=== PATIENT | male | born 1950 | race Caucasian/White ===

== ENCOUNTER 2017-02-28 13:25 | Inpatient (IN) | payer OTHER, BC ==
[2017-02-28] MEDS ORDERED: ASPIRIN 325 MG TABLET PO ONE (14:22)
[2017-02-28] MEDS ORDERED: ASPIRIN 325 MG TABLET ONE (14:42)
[2017-02-28] MEDS ORDERED: NITROGLYCERIN SUBLINGUAL 1/150 0.4 MG TAB SL ONE (15:01)
[2017-02-28] MEDS ORDERED: NITROGLYCERIN SUBLINGUAL 1/150 0.4 MG TAB ONE ×2 (15:02→15:04)
[2017-02-28 15:07] LABS: BASOPHIL 0.6 % (0-2.0); EOSINOPHIL 0.3 % (0-4.5); MCH 29.9 pg (25.7-33.7); MCHC 32.7 g/dl (32.0-35.9); MEAN CELL VOLUME 91.5 fl (80-96); MEAN PLT VOLUME 8.3 fl (7.5-11.1); NEUTROPHILS 86.3 % (42.8-82.8); PLATELET COUNT 249 K/MM3 (134-434); RDW 13.1 % (11.9-15.9); WHITE BLOOD COUNT 11.3 K/mm3 (4.0-10.0)
--- NOTE | 2017-02-28 15:09 | PDOC ---
History of Present Illness - General Stated Complaint: CHEST PAIN Time Seen by Provider: 02/28/17 13:34 History Source: Patient - History of Present Illness Presenting Symptoms: Chest Pain, Short of Breath Timing/Duration: reports: constant Severity/Quality: reports: severe Location: reports: substernal Chest Pain Radiation: reports: back Past History - Past Medical History Allergies/Adverse Reactions: Allergies Allergy/AdvReac Type Severity Reaction Status Date / Time No Known Allergies Allergy Verified 11/20/14 16:27 Home Medications: Ambulatory Orders Amlodipine Besylate 5 mg PO DAILY 02/28/17 Levothyroxine [Synthroid -] 50 mcg PO DAILY 02/28/17 Losartan Potassium 100 mg PO DAILY 02/28/17 Metformin HCl 500 mg PO DAILY 02/28/17 Anemia: No Asthma: No Cancer: No Cardiac Disorders: No CVA: No COPD: No CHF: No Dementia: No Diabetes: Yes (diet and exercise control) GI Disorders: No Disorders: No HTN: Yes Hypercholesterolemia: Yes Liver Disease: No Seizures: No Thyroid Disease: Yes - Surgical History Abdominal Surgery: No Appendectomy: No Cardiac Surgery: No Cholecystectomy: No Gastric Stapling: No GI Surgery: No Lung Surgery: No Neurologic Surgery: No - Immunization History Td Vaccination: Yes Immunization Up to Date: Yes - Psycho/Social/Smoking Cessation Hx Anxiety: No Suicidal Ideation: Yes Smoking Status: No Smoking History: Unknown if ever smoked Years of Tobacco Use: 0 Have you smoked in the past 12 months: Yes Number of Cigarettes Smoked Daily: 1 Cigars Per Day: 0 Information on smoking cessation initiated: Yes 'Breaking Loose' booklet given: 02/28/17 Hx Alcohol Use: No Drug/Substance Use Hx: No Substance Use Type: Alcohol Hx Substance Use Treatment: No Cardiac Specific PMH - Complaint Specific PMHX Pacemaker: No Review of Systems - Review of Systems Constitutional: No: Chills, Fever Respiratory: Yes: Shortness of Breath Cardiac (ROS): Yes: Chest Pain, Palpitations. No: Lightheadedness, Syncope ABD/GI: No: Nausea, Vomiting *Physical Exam - Vital Signs Last Vital Signs Temp Pulse Resp BP Pulse Ox 98.6 F 86 24 160/108 100 02/28/17 13:40 02/28/17 17:22 02/28/17 13:40 02/28/17 17:22 02/28/17 13:40 - Physical Exam General Appearance: Yes: Appropriately Dressed. No: Apparent Distress HEENT: positive: Normal Voice Neck: positive: Supple Respiratory/Chest: positive: Lungs Clear, Normal Breath Sounds. negative: Respiratory Distress Cardiovascular: positive: Regular Rate, S1, S2 Gastrointestinal/Abdominal: positive: Soft. negative: Tender Extremity: positive: Normal Inspection Integumentary: positive: Dry, Warm Neurologic: positive: Fully Oriented, Alert, Normal Mood/Affect ED Treatment Course - LABORATORY CBC & Chemistry Diagram: 02/28/17 15:00 02/28/17 15:00 - ADDITIONAL ORDERS Additional order review: Laboratory Results 02/28/17 02/28/17 15:00 15:00 Sodium 135 L Potassium 4.7 Chloride 97 L Carbon Dioxide 29 Anion Gap 9 BUN 14 D Creatinine 1.0 Creat Clearance w eGFR > 60 Random Glucose 207 H D Calcium 9.6 Total Bilirubin 0.9 D AST 31 D ALT 49 D Alkaline Phosphatase 102 Creatine Kinase 119 Troponin I 0.10 H D B-Natriuretic Peptide 25.30 Total Protein 7.6 Albumin 4.4 02/28/17 15:00 RBC 5.27 MCV 91.5 MCHC 32.7 RDW 13.1 MPV 8.3 Neutrophils % 86.3 H Lymphocytes % 8.2 D Monocytes % 4.6 Eosinophils % 0.3 D Basophils % 0.6 - RADIOLOGY Radiology Studies Ordered: Category Date Time Status ABDOMEN/PELVIS CTA W/WO CONTR [CT] Stat CT Scan 02/28/17 16:45 Completed CHEST CTA [CT] Stat CT Scan 02/28/17 15:07 Completed CHEST X-RAY PORTABLE* [RAD] Stat Radiology 02/28/17 14:21 Completed - Medications Given in the ED: ED Medications Discontinued Medications Generic Name Dose Route Start Last Admin Trade Name Freq PRN Reason Stop Dose Admin Aspirin 325 mg 02/28/17 14:22 02/28/17 14:41 Asa - PO 02/28/17 14:23 325 mg ONCE ONE Administration Nitroglycerin 0.4 mg 02/28/17 15:01 02/28/17 15:05 Nitrostat - SL 02/28/17 15:02 0.4 mg ONCE ONE Administration Nitroglycerin 1 inch 02/28/17 15:31 02/28/17 17:18 Nitro-Bid 2% Paste - TD 02/28/17 15:32 1 inch ONCE ONE Administration Nitroglycerin 0.3 mg 02/28/17 17:08 02/28/17 17:18 Nitrostat - SL 02/28/17 17:19 0.3 mg Q5M PRN Administration FOR CHEST PAIN Nitroglycerin 0.5 inch 02/28/17 17:15 02/28/17 17:18 Nitro-Bid 2% Paste - TD 02/28/17 17:16 0.5 inch ONCE ONE Administration Medical Decision Making - Medical Decision Making 02/28/17 15:08 67 yo M, h/o HTN, DM, hypothyroid, p/w sudden onset chest pressure radiating to back a/w sob that started suddenly while walking to [place] ~2 hrs ago. States sxs have improved but still present. States he returned home after sxs started and checked his BP which was 170s/100s as per pt. Reports compliance w/ his meds. Currently on 2L NC in ED and states the oxygen makes him feel better. Denies h/o similar sxs. Last stress was >20 years ago per pt. No obvious RF for DVT/PE See exam CP w/ sob in setting of significantly elevated BP R/o dissection vs ACS, less likely PE -asa -nitro -ekg -labs -CTA -anticipate admission 02/28/17 15:17 02/28/17 15:35 02/28/17 15:37 EKG w/ NSR. Labs pending. BP management in progress. Pt currently in CT 02/28/17 17:12 Pt returned from CTA c/o chest pain. BP currently 185/103. Nitro/nitropaste in progress w/ NSR on rpt ekg. Initial trop 0.1. CTA read pending. Dr Esteban informed and req Dr Dumont of cards be consulted. Pt currently admitted 02/28/17 17:20 02/28/17 17:43 CTA read as negative. Dr Heller at bedside 02/28/17 17:53 BP now 160/100. Pt appears comfortable and reports feeling better at this time. Pending cards recommendation *DC/Admit/Observation/Transfer Diagnosis at time of Disposition: Hypertensive crisis Chest pain Qualifiers: Chest pain type: unspecified Qualified Code(s): R07.9 - Chest pain, unspecified - Discharge Dispostion Condition at time of disposition: Fair Admit: Yes Decision to Admit order Date/Time: Decision to Admit Order Category Date Time Status Decision to Admit to Hospital Routine Admission 02/28/17 17:14 Active - Referrals Referrals: Edu Esteban MD [Primary Care Provider] -
--- NOTE | 2017-02-28 15:23 | PDOC ---
*Physical Exam - Vital Signs Last Vital Signs Temp Pulse Resp BP Pulse Ox 98.6 F 87 24 154/89 100 02/28/17 13:40 02/28/17 15:16 02/28/17 13:40 02/28/17 15:16 02/28/17 13:40 <Marilu Dyer - Last Filed: 02/28/17 15:23> - Vital Signs Last Vital Signs Temp Pulse Resp BP Pulse Ox 98.6 F 86 24 160/108 100 02/28/17 13:40 02/28/17 17:22 02/28/17 13:40 02/28/17 17:22 02/28/17 13:40 <Shani Ortiz - Last Filed: 02/28/17 17:26> Heart Score/ECG Review #2 General ECG Interpretation: Sinus Rhythm, Normal Rate, Normal Intervals, No acute ischemic changes (no acute changes, few PVC;s) <Marilu Dyer - Last Filed: 02/28/17 15:23> ED Treatment Course - LABORATORY CBC & Chemistry Diagram: 02/28/17 15:00 02/28/17 15:00 - ADDITIONAL ORDERS Additional order review: 02/28/17 15:00 RBC 5.27 MCV 91.5 MCHC 32.7 RDW 13.1 MPV 8.3 Neutrophils % 86.3 H Lymphocytes % 8.2 D Monocytes % 4.6 Eosinophils % 0.3 D Basophils % 0.6 - Medications Given in the ED: ED Medications Discontinued Medications Generic Name Dose Route Start Last Admin Trade Name Judeq PRN Reason Stop Dose Admin Aspirin 325 mg 02/28/17 14:22 02/28/17 14:41 Asa - PO 02/28/17 14:23 325 mg ONCE ONE Administration Nitroglycerin 0.4 mg 02/28/17 15:01 02/28/17 15:05 Nitrostat - SL 02/28/17 15:02 0.4 mg ONCE ONE Administration <Marilu Dyer - Last Filed: 02/28/17 15:23> - LABORATORY CBC & Chemistry Diagram: 02/28/17 15:00 02/28/17 15:00 - ADDITIONAL ORDERS Additional order review: Laboratory Results 02/28/17 02/28/17 15:00 15:00 Sodium 135 L Potassium 4.7 Chloride 97 L Carbon Dioxide 29 Anion Gap 9 BUN 14 D Creatinine 1.0 Creat Clearance w eGFR > 60 Random Glucose 207 H D Calcium 9.6 Total Bilirubin 0.9 D AST 31 D ALT 49 D Alkaline Phosphatase 102 Creatine Kinase 119 Troponin I 0.10 H D B-Natriuretic Peptide 25.30 Total Protein 7.6 Albumin 4.4 02/28/17 15:00 RBC 5.27 MCV 91.5 MCHC 32.7 RDW 13.1 MPV 8.3 Neutrophils % 86.3 H Lymphocytes % 8.2 D Monocytes % 4.6 Eosinophils % 0.3 D Basophils % 0.6 - Medications Given in the ED: ED Medications Discontinued Medications Generic Name Dose Route Start Last Admin Trade Name Freq PRN Reason Stop Dose Admin Aspirin 325 mg 02/28/17 14:22 02/28/17 14:41 Asa - PO 02/28/17 14:23 325 mg ONCE ONE Administration Nitroglycerin 0.4 mg 02/28/17 15:01 02/28/17 15:05 Nitrostat - SL 02/28/17 15:02 0.4 mg ONCE ONE Administration Nitroglycerin 1 inch 02/28/17 15:31 02/28/17 17:18 Nitro-Bid 2% Paste - TD 02/28/17 15:32 1 inch ONCE ONE Administration Nitroglycerin 0.3 mg 02/28/17 17:08 02/28/17 17:18 Nitrostat - SL 02/28/17 17:19 0.3 mg Q5M PRN Administration FOR CHEST PAIN Nitroglycerin 0.5 inch 02/28/17 17:15 02/28/17 17:18 Nitro-Bid 2% Paste - TD 02/28/17 17:16 0.5 inch ONCE ONE Administration <Shani Ortiz - Last Filed: 02/28/17 17:26> Medical Decision Making - Medical Decision Making 02/28/17 15:20 67 yo male h/o HTN, HLD, DM here wtih sudden onset chest pain radiating to his back .started this am while driving to [place], got out of car suddenly had pain. no n/v no fever or chills. no cough. no new numbness or tingling. no edema. no h/o prior ME. took bp medication last pm. no h/o similar pain. pressure like pain, substernal, radiating to back. on exam awake, alert NAD. lung CTAB no wheeze no crackles. heart RRR no mr/g/. abd soft NT no palp massess. pulses symmetric, ext wwp. no edema. differntial: unstable angina, acs, dissection, mi, infection. plan cxr labs ekg aspirin given . pt had recurrent pain, given sublingual nitroglycerin . pain improved. plan ct angio. <Marilu Dyer - Last Filed: 02/28/17 15:23> - Medical Decision Making 02/28/17 17:25 Dr. Dumont was paged and notified via phone service. <Shani Ortiz - Last Filed: 02/28/17 17:26> *DC/Admit/Observation/Transfer <Marilu Dyer - Last Filed: 02/28/17 15:23> <Shani Ortiz - Last Filed: 02/28/17 17:26> Diagnosis at time of Disposition: Chest pain, Hypertensive crisis - Discharge Dispostion Condition at time of disposition: Fair - Referrals Referrals: Edu Esteban MD [Primary Care Provider] -
[2017-02-28] MEDS ORDERED: NITROGLYCERIN 2% OINTMENT - 1GM PACKET TD ONE ×3 (15:31→17:15)
[2017-02-28 15:38] LABS: ALBUMIN 4.4 g/dl (3.4-5.0); ANION GAP 9 (8-16); BILIRUBIN,TOTAL 0.9 mg/dL (0.2-1.0); CALCIUM 9.6 mg/dL (8.5-10.1); CO2 29 mmol/L (21-32); COCKROFT - GAULT 70.87; GLUCOSE,RANDOM 207 mg/dL (74-106); SGOT/AST 31 U/L (15-37); SGPT/ALT 49 U/L (12-78); TOT PROT 7.6 g/dl (6.4-8.2)
[2017-02-28 15:40] LABS: ALK PHOS 102 U/L (45-117)
[2017-02-28] MEDS ORDERED: NITROGLYCERIN SUBLINGUAL 1/200 0.3 MG BTL SL PRN (17:08)
--- NOTE | 2017-02-28 17:36 | CON.CARD ---
Consult Consult Specialty:: Cardiology Referred by:: Edu Esteban MD Reason for Consultation:: Chest pain - History of Present Illness Chief Complaint: Chest pain History of Present Illness: 67 yo M, h/o HTN, DM, hypothyroid, presents with non-exertional chest pressure radiating to back and neck while driving, sxs worse supine, improved sitting up , non-pleuritic. He denies sob, near or true syncope, palpitations, orthopnea, PND or LE edema, found to be hypertensive, sxs improved with beta blockade, O2 and NTP. He reports compliance w/ his meds. Last stress was >20 years ago per pt. No obvious RF for DVT/PE. 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 History of Recent Travel: Yes (three months ago to [facility]) Home Medications - Allergies Allergies/Adverse Reactions: Allergies Allergy/AdvReac Type Severity Reaction Status Date / Time No Known Allergies Allergy Verified 11/20/14 16:27 - Home Medications Home Medications: Ambulatory Orders Amlodipine Besylate 5 mg PO DAILY 02/28/17 Levothyroxine [Synthroid -] 50 mcg PO DAILY 02/28/17 Losartan Potassium 100 mg PO DAILY 02/28/17 Metformin HCl 500 mg PO DAILY 02/28/17 Review of Systems - Review of Systems Cardiovascular: reports: Chest Pain Vital Signs: Vital Signs Temperature 98.6 F 02/28/17 13:40 Pulse Rate 86 02/28/17 17:22 Respiratory Rate 24 02/28/17 13:40 Blood Pressure 160/108 02/28/17 17:22 O2 Sat by Pulse Oximetry (%) 100 02/28/17 13:40 Constitutional: Yes: No Distress, Calm Neck: Yes: Supple Respiratory: Yes: Regular, CTA Bilaterally, On Nasal O2 Gastrointestinal: Yes: Normal Bowel Sounds, Soft Cardiovascular: Yes: Regular Rate and Rhythm JVD: No Carotid Bruit: No Heart Sounds: Yes: S1, S2 Edema: No - Other Data Labs, Other Data: CBC, BMP 05/26/17 15:00 02/28/17 15:00 Troponin, BNP 02/28/17 02/28/17 15:00 15:00 Troponin I 0.10 H D B-Natriuretic Peptide 25.30 Troponin, BNP 02/28/17 02/28/17 15:00 15:00 Troponin I 0.10 H D B-Natriuretic Peptide 25.30 NSR @ 83 PVC Imaging - Results Chest X-ray: Report Reviewed (NAD) Cat Scan: Report Reviewed (No aortic dissection or aneurysm) Problem List - Problems (1) Chest pain Code(s): R07.9 - CHEST PAIN, UNSPECIFIED Qualifiers: Chest pain type: precordial pain Qualified Code(s): R07.2 - Precordial pain (2) Hypertensive urgency Code(s): I16.0 - HYPERTENSIVE URGENCY (3) Premature ventricular contraction Code(s): I49.3 - VENTRICULAR PREMATURE DEPOLARIZATION (4) Type 2 diabetes mellitus Code(s): E11.9 - TYPE 2 DIABETES MELLITUS WITHOUT COMPLICATIONS Qualifiers: Diabetes mellitus complication status: without complication Diabetes mellitus senior living insulin use: without associate professor of chemistry use Qualified Code(s): E11.9 - Type 2 diabetes mellitus without complications (5) Hyperlipidemia associated with type 2 diabetes mellitus Code(s): E11.69 - TYPE 2 DIABETES MELLITUS WITH OTHER SPECIFIED COMPLICATION E78.5 - HYPERLIPIDEMIA, UNSPECIFIED Assessment/Plan 1. Chest pain syndrome with positional component consider pericarditis vs myopericarditis vs myocardial ischemia 2. Hypertensive urgency 3. Type 2 DM 4. Hyperlipidemia P:1. Cycle cardiac enzymes to document peak, check TSH, lipid panel, Ha1c 2. Start ASA 81 qd, Norvasc 5 qd, losartan 100 qd, add carvedilol 6.25 bid 3. Echocardiogram to assess ventricular and valve fxn 4. Possible stress testing in future vs [facility] 5. Thank you for consultative opportunity
[2017-02-28] MEDS ORDERED: amLODIPine BESYLATE 5 MG TABLET (FP) ONE (19:20)
[2017-02-28] MEDS: amLODIPine BESYLATE 5 MG TABLET (FP) PO SCH (19:20)
[2017-02-28] MEDS ORDERED: CARVEDILOL 3.125 MG TABLET (FP) ONE (20:41)
[2017-02-28] MEDS: CARVEDILOL 6.25 MG TABLET (FP) PO SCH (20:45)
[2017-02-28 23:05] VITALS: BMI 24.3
[2017-03-01] MEDS: metFORMIN HCL 500 MG TABLET (FP) PO SCH (06:18)
[2017-03-01] MEDS: LEVOTHYROXINE NA 50 MCG TABLET (FP) PO SCH (06:18)
[2017-03-01 07:42] LABS: LDL CHOLESTEROL (ONLY SJRH) 135 mg/dL (5-100)
[2017-03-01 07:43] LABS: C-REACTIVE PROTEIN < 0.3 MG/DL (0.00-0.3); CHOLESTEROL 195 mg/dL (50-200)
[2017-03-01 07:45] LABS: TROPONIN I 0.18 ng/ml (0.00-0.05)
[2017-03-01 07:51] LABS: THYROID STIMULATING HORMONE 4.23 uIU/ml (0.358-3.74)
--- NOTE | 2017-03-01 09:38 | PN ---
Progress Note, Physician History of Present Illness: No further chest pain, denies dyspnea, BP improved. - Current Medication List Current Medications: Active Medications Amlodipine Besylate (Norvasc -) 5 mg PO DAILY [facility] Last Admin: 02/28/17 19:20 Dose: 5 mg Aspirin (Asa -) 81 mg PO DAILY [facility] Carvedilol (Coreg -) 6.25 mg PO BID [facility] Last Admin: 02/28/17 20:45 Dose: 6.25 mg Levothyroxine Sodium (Synthroid -) 50 mcg PO DAILY@0700 [facility] Last Admin: 03/01/17 06:18 Dose: 50 mcg Losartan Potassium (Cozaar -) 100 mg PO DAILY [facility] Metformin HCl (Glucophage -) 500 mg PO DAILY@0700 [facility] Last Admin: 03/01/17 06:18 Dose: Not Given - Objective Vital Signs: Vital Signs Temperature 98.1 F 03/01/17 06:00 Pulse Rate 79 03/01/17 06:00 Respiratory Rate 18 03/01/17 06:00 Blood Pressure 121/79 03/01/17 06:00 O2 Sat by Pulse Oximetry (%) 95 02/28/17 23:00 Constitutional: Yes: No Distress, Calm Neck: Yes: Supple Cardiovascular: Yes: Regular Rate and Rhythm Respiratory: Yes: Regular, Diminished Gastrointestinal: Yes: Normal Bowel Sounds, Soft Edema: No - ....Imaging EKG: Report Reviewed (Tele: NSR without PVC) Problem List - Problems (1) Chest pain Code(s): R07.9 - CHEST PAIN, UNSPECIFIED Qualifiers: Chest pain type: precordial pain Qualified Code(s): R07.2 - Precordial pain (2) Hypertensive urgency Code(s): I16.0 - HYPERTENSIVE URGENCY (3) Premature ventricular contraction Code(s): I49.3 - VENTRICULAR PREMATURE DEPOLARIZATION (4) Type 2 diabetes mellitus Code(s): E11.9 - TYPE 2 DIABETES MELLITUS WITHOUT COMPLICATIONS Qualifiers: Diabetes mellitus complication status: without complication Diabetes mellitus longterm insulin use: without longterm use Qualified Code(s): E11.9 - Type 2 diabetes mellitus without complications (5) Hyperlipidemia associated with type 2 diabetes mellitus Code(s): E11.69 - TYPE 2 DIABETES MELLITUS WITH OTHER SPECIFIED COMPLICATION E78.5 - HYPERLIPIDEMIA, UNSPECIFIED (6) Subendocardial ischemia Code(s): I24.8 - OTHER FORMS OF ACUTE ISCHEMIC HEART DISEASE Assessment/Plan 1. Chest pain syndrome with subendocardial ischemia in context of 2. Hypertensive urgency 3. Type 2 DM 4. Hyperlipidemia P:1. Trops peaked 2. Continue ASA 81 qd, Norvasc 5 qd, losartan 100 qd and carvedilol 6.25 bid, add Crestor 10 qd 3. Echocardiogram to assess ventricular and valve fxn 4. Stress testing vs [facility] in future
[2017-03-01 10:12] LABS: URINE APPEARANCE CLEAR; URINE BILIRUBIN NEGATIVE (NEGATIVE); URINE BLOOD NEGATIVE (NEGATIVE); URINE COLOR LTYELLOW; URINE GLUCOSE (UA) 3+ (NEGATIVE); URINE KETONE NEGATIVE (NEGATIVE); URINE LEUK ESTERASE NEGATIVE (NEGATIVE); URINE NITRITE NEGATIVE (NEGATIVE); URINE PROTEIN NEGATIVE (NEGATIVE); URINE UROBILINOGEN NEGATIVE E.U./dl (0.2-1.0)
[2017-03-01] MEDS: amLODIPine BESYLATE 5 MG TABLET (FP) PO SCH (10:25)
[2017-03-01] MEDS: ASPIRIN 81 MG CHEWABLE TABLETS PO SCH (10:25)
[2017-03-01] MEDS: LOSARTAN POTASSIUM 50 MG TABLET (FP) PO SCH (10:25)
[2017-03-01] MEDS: CARVEDILOL 6.25 MG TABLET (FP) PO SCH ×2 (10:25→21:42)
--- NOTE | 2017-03-01 10:41 | HP ---
DATE OF ADMISSION: DATE OF DICTATION: 03/01/2017 HISTORY OF PRESENT ILLNESS: This is a 67-year-old male with hypertension, diabetes, hypothyroidism, came to the emergency room yesterday with complaints of chest pain radiating to back and neck. Started while driving. No exertional dyspnea, short of breath. No history of [place]. He is compliant with his medications. Not a smoker. Employed. Has grown-up children and . PHYSICAL EXAMINATION:Vital Signs: Today, BP 130/80, pulse 72, respiration 20, temperature 98. HEENT: Within normal limits. Lungs: Clear. Heart: S1, S2 normal. No S3, S4. Abdomen: Soft. Extremities: Legs: No edema. Neurological: Grossly normal. DIAGNOSTIC DATA: EKG showed occasionally PVCs. Labs: WBC 11, hemoglobin 15, hematocrit 48, platelet 249. Sodium 135, potassium 4.7, chloride 97. Blood sugar 207. CPK 0.1, repeat 1.7, so borderline high 0.2, 0.18. BNP 25. TSH 4.3. IMPRESSION:Atypical chest pain . Hypertension. Diabetes. Hypothyroidism. PLAN: [employer] evaluated, advised further cardiac monitoring. Will follow. Ta [id number]
[2017-03-01] MEDS ORDERED: METOPROLOL TARTRATE 5 MG/5 ML VIAL ONE (20:56)
[2017-03-01] MEDS ORDERED: METOPROLOL TARTRATE 5 MG/5 ML VIAL IVPUSH ONE (21:00)
[2017-03-01] MEDS ORDERED: KETOROLAC TROMETHAMINE 30 MG/1 ML VIAL IVPUSH ONE (21:30)
[2017-03-01] MEDS: MAG HYDROX/AL HYDROX/SIMETH 30 ML UNIT-DOSE CUP PO PRN (21:42)
[2017-03-01] MEDS: ROSUVASTATIN CA 10 MG TABLET (FP) PO SCH (21:42)
[2017-03-01 22:19] LABS: TROPONIN I 0.09 ng/ml (0.00-0.05)
[2017-03-02] MEDS: metFORMIN HCL 500 MG TABLET (FP) PO SCH (06:04)
[2017-03-02] MEDS: LEVOTHYROXINE NA 50 MCG TABLET (FP) PO SCH (06:18)
[2017-03-02] MEDS: CARVEDILOL 6.25 MG TABLET (FP) PO SCH (09:48)
[2017-03-02] MEDS: LOSARTAN POTASSIUM 50 MG TABLET (FP) PO SCH (09:48)
[2017-03-02] MEDS: amLODIPine BESYLATE 5 MG TABLET (FP) PO SCH (09:48)
[2017-03-02] MEDS: ASPIRIN 81 MG CHEWABLE TABLETS PO SCH (09:48)
--- NOTE | 2017-03-02 12:37 | PN ---
Progress Note, Physician History of Present Illness: Recurrent episode of similar positional chest pain overnight while supine, improved sitting up SBP 160s, resolved with IV Lopressor and Toradol, denies dyspnea or chest pain with exertion - Current Medication List Current Medications: Active Medications Al Hydroxide/Mg Hydroxide (Mylanta Oral Suspension -) 30 ml PO Q6H PRN PRN Reason: INDIGESTION Last Admin: 03/01/17 21:42 Dose: 30 ml Amlodipine Besylate (Norvasc -) 5 mg PO DAILY [facility] Last Admin: 03/02/17 09:48 Dose: 5 mg Aspirin (Asa -) 81 mg PO DAILY [facility] Last Admin: 03/02/17 09:48 Dose: 81 mg Carvedilol (Coreg -) 6.25 mg PO BID [facility] Last Admin: 03/02/17 09:48 Dose: 6.25 mg Levothyroxine Sodium (Synthroid -) 50 mcg PO DAILY@0700 [facility] Last Admin: 03/02/17 06:18 Dose: 50 mcg Losartan Potassium (Cozaar -) 100 mg PO DAILY [facility] Last Admin: 03/02/17 09:48 Dose: 100 mg Metformin HCl (Glucophage -) 500 mg PO DAILY@0700 [facility] Last Admin: 03/02/17 06:04 Dose: Not Given Rosuvastatin Calcium (Crestor -) 10 mg PO HS [facility] Last Admin: 03/01/17 21:42 Dose: 10 mg - Objective Vital Signs: Vital Signs Temperature 97.9 F 03/02/17 09:50 Pulse Rate 77 03/02/17 09:50 Respiratory Rate 16 03/02/17 09:50 Blood Pressure 138/72 03/02/17 09:50 O2 Sat by Pulse Oximetry (%) 99 03/02/17 09:50 Constitutional: Yes: No Distress, Calm Neck: Yes: Supple Cardiovascular: Yes: Regular Rate and Rhythm Respiratory: Yes: Regular, CTA Bilaterally Gastrointestinal: Yes: Normal Bowel Sounds, Soft Edema: No - ....Imaging EKG: Report Reviewed (NSR @ [address]-T changes) Problem List - Problems (1) Chest pain Code(s): R07.9 - CHEST PAIN, UNSPECIFIED Qualifiers: Chest pain type: precordial pain Qualified Code(s): R07.2 - Precordial pain (2) Hypertensive urgency Code(s): I16.0 - HYPERTENSIVE URGENCY (3) Premature ventricular contraction Code(s): I49.3 - VENTRICULAR PREMATURE DEPOLARIZATION (4) Type 2 diabetes mellitus Code(s): E11.9 - TYPE 2 DIABETES MELLITUS WITHOUT COMPLICATIONS Qualifiers: Diabetes mellitus complication status: without complication Diabetes mellitus 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 insulin use: without 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 use Qualified Code(s): E11.9 - Type 2 diabetes mellitus without complications (5) Hyperlipidemia associated with type 2 diabetes mellitus Code(s): E11.69 - TYPE 2 DIABETES MELLITUS WITH OTHER SPECIFIED COMPLICATION E78.5 - HYPERLIPIDEMIA, UNSPECIFIED (6) Subendocardial ischemia Code(s): I24.8 - OTHER FORMS OF ACUTE ISCHEMIC HEART DISEASE (7) Hypothyroidism Code(s): E03.9 - HYPOTHYROIDISM, UNSPECIFIED Qualifiers: Hypothyroidism type: unspecified Qualified Code(s): E03.9 - Hypothyroidism, unspecified Assessment/Plan 03/01/2017 Echo: Mild decreased LV fxn, preserved RV fxn, tr MR, TR 1. Chest pain syndrome possible myopericarditis vs. subendocardial ischemia in context of 2. Hypertensive urgency 3. Type 2 DM 4. Hyperlipidemia 5. Hypothyroidism P:1. Trops peaked, check EKG today 2. Continue ASA 81 qd, Norvasc 5 qd, losartan 100 qd, Crestor 10 qd and increase carvedilol 12.5 bid, trial of Naprosyn 250 bid with GI protection 3. Likely Stress testing vs [facility] in future
[2017-03-02] MEDS ORDERED: NAPROXEN 250 MG TABLET (FP) PO PRN (12:50)
[2017-03-02] MEDS: MAG HYDROX/AL HYDROX/SIMETH 30 ML UNIT-DOSE CUP PO PRN ×2 (14:01→21:03)
--- NOTE | 2017-03-02 14:58 | PN ---
Progress Note, Physician Chief Complaint: Had chest pain again History of Present Illness: Case discussed with Dr Su, advised nuclear stress before D.C home - Current Medication List Current Medications: Active Medications Al Hydroxide/Mg Hydroxide (Mylanta Oral Suspension -) 30 ml PO Q6H PRN PRN Reason: INDIGESTION Last Admin: 03/02/17 14:01 Dose: 30 ml Amlodipine Besylate (Norvasc -) 5 mg PO DAILY [facility] Last Admin: 03/02/17 09:48 Dose: 5 mg Aspirin (Asa -) 81 mg PO DAILY [facility] Last Admin: 03/02/17 09:48 Dose: 81 mg Carvedilol (Coreg -) 12.5 mg PO BID [facility] Levothyroxine Sodium (Synthroid -) 50 mcg PO DAILY@0700 [facility] Last Admin: 03/02/17 06:18 Dose: 50 mcg Losartan Potassium (Cozaar -) 100 mg PO DAILY [facility] Last Admin: 03/02/17 09:48 Dose: 100 mg Metformin HCl (Glucophage -) 500 mg PO DAILY@0700 [facility] Last Admin: 03/02/17 06:04 Dose: Not Given Naproxen (Naprosyn -) 250 mg PO BID PRN PRN Reason: PAIN Rosuvastatin Calcium (Crestor -) 10 mg PO HS [facility] Last Admin: 03/01/17 21:42 Dose: 10 mg - Objective Vital Signs: Vital Signs Temperature 97.9 F 03/02/17 14:30 Pulse Rate 77 03/02/17 14:30 Respiratory Rate 18 03/02/17 14:30 Blood Pressure 118/78 03/02/17 14:30 O2 Sat by Pulse Oximetry (%) 99 03/02/17 09:50 Constitutional: Yes: No Distress Eyes: Yes: WNL HENT: Yes: WNL Neck: Yes: WNL Cardiovascular: Yes: WNL Respiratory: Yes: WNL Gastrointestinal: Yes: WNL ...Rectal Exam: Yes: WNL Genitourinary: Yes: WNL Musculoskeletal: Yes: WNL, Muscle Weakness Extremities: Yes: WNL Peripheral Pulses WNL: Yes Integumentary: Yes: WNL Neurological: Yes: Alert ...Motor Strength: WNL Psychiatric: Yes: Alert Assessment/Plan Continue telemetry care
[2017-03-02] MEDS: ROSUVASTATIN CA 10 MG TABLET (FP) PO SCH (21:03)
[2017-03-02] MEDS: CARVEDILOL 12.5 MG TABLET (FP) PO SCH (21:03)
--- NOTE | 2017-03-02 22:24 | EKG ---
Test Reason : Blood Pressure : / mmHG Vent. Rate : 082 BPM Atrial Rate : 082 BPM P-R Int : 150 ms QRS Dur : 082 ms QT Int : 372 ms P-R-T Axes : 064 041 051 degrees QTc Int : 434 ms NORMAL SINUS RHYTHM NORMAL ECG WHEN COMPARED WITH ECG OF 20-NOV-2014 19:59, NO SIGNIFICANT CHANGE WAS FOUND Confirmed by MARGOTH ARMSTRONG MD ([id number]) on 03/02/2017 10:24:01 PM Referred By: Confirmed By:MARGOTH ARMSTRONG MD
--- NOTE | 2017-03-02 22:30 | EKG ---
Test Reason : Blood Pressure : / mmHG Vent. Rate : 091 BPM Atrial Rate : 091 BPM P-R Int : 142 ms QRS Dur : 074 ms QT Int : 368 ms P-R-T Axes : 070 039 057 degrees QTc Int : 452 ms SINUS RHYTHM WITH FREQUENT PREMATURE VENTRICULAR COMPLEXES OTHERWISE NORMAL ECG WHEN COMPARED WITH ECG OF 28-FEB-2017 14:16, PREMATURE VENTRICULAR COMPLEXES ARE NOW PRESENT Confirmed by NATHANIEL CR, MARGOTH ([id number]) on 03/02/2017 10:30:06 PM Referred By: LEA Confirmed By:MARGOTH ARMSTRONG MD
[2017-03-03] MEDS: LEVOTHYROXINE NA 50 MCG TABLET (FP) PO SCH (06:22)
[2017-03-03] MEDS: metFORMIN HCL 500 MG TABLET (FP) PO SCH (06:23)
--- NOTE | 2017-03-03 07:30 | EKG ---
Test Reason : Blood Pressure : / mmHG Vent. Rate : 079 BPM Atrial Rate : 079 BPM P-R Int : 148 ms QRS Dur : 078 ms QT Int : 358 ms P-R-T Axes : 062 059 067 degrees QTc Int : 410 ms NORMAL SINUS RHYTHM NORMAL ECG WHEN COMPARED WITH ECG OF 28-FEB-2017 17:13, QT HAS SHORTENED Confirmed by MARGOTH ARMSTRONG MD ([id number]) on 03/03/2017 7:29:32 AM Referred By: Confirmed By:MARGOTH ARMSTRONG MD
--- NOTE | 2017-03-03 07:31 | EKG ---
Test Reason : Blood Pressure : / mmHG Vent. Rate : 067 BPM Atrial Rate : 067 BPM P-R Int : 152 ms QRS Dur : 082 ms QT Int : 404 ms P-R-T Axes : 062 057 069 degrees QTc Int : 426 ms NORMAL SINUS RHYTHM T WAVE ABNORMALITY, CONSIDER ANTERIOR ISCHEMIA ABNORMAL ECG WHEN COMPARED WITH ECG OF 01-MAR-2017 20:54, T WAVE INVERSION NOW EVIDENT IN ANTERIOR LEADS Confirmed by NATHANIEL CR, MARGOTH ([id number]) on 03/03/2017 7:31:21 AM Referred By: Mattie GREOC Confirmed By:MARGOTH ARMSTRONG MD
[2017-03-03] MEDS: LOSARTAN POTASSIUM 50 MG TABLET (FP) PO SCH (09:48)
[2017-03-03] MEDS: CARVEDILOL 12.5 MG TABLET (FP) PO SCH ×2 (09:49→21:16)
[2017-03-03] MEDS: amLODIPine BESYLATE 5 MG TABLET (FP) PO SCH (09:49)
[2017-03-03] MEDS: ASPIRIN 81 MG CHEWABLE TABLETS PO SCH (09:49)
--- NOTE | 2017-03-03 12:07 | PN ---
Progress Note, Physician History of Present Illness: No further chest discomfort, EKG shows LAD ischemia. - Current Medication List Current Medications: Active Medications Al Hydroxide/Mg Hydroxide (Mylanta Oral Suspension -) 30 ml PO Q6H PRN PRN Reason: INDIGESTION Last Admin: 03/02/17 21:03 Dose: 30 ml Amlodipine Besylate (Norvasc -) 5 mg PO DAILY [facility] Last Admin: 03/03/17 09:49 Dose: 5 mg Aspirin (Asa -) 81 mg PO DAILY [facility] Last Admin: 03/03/17 09:49 Dose: 81 mg Carvedilol (Coreg -) 12.5 mg PO BID [facility] Last Admin: 03/03/17 09:49 Dose: 12.5 mg Levothyroxine Sodium (Synthroid -) 50 mcg PO DAILY@0700 [facility] Last Admin: 03/03/17 06:22 Dose: 50 mcg Losartan Potassium (Cozaar -) 100 mg PO DAILY [facility] Last Admin: 03/03/17 09:48 Dose: 100 mg Metformin HCl (Glucophage -) 500 mg PO DAILY@0700 [facility] Last Admin: 03/03/17 06:23 Dose: 500 mg Naproxen (Naprosyn -) 250 mg PO BID PRN PRN Reason: PAIN Rosuvastatin Calcium (Crestor -) 10 mg PO HS [facility] Last Admin: 03/02/17 21:03 Dose: 10 mg - Objective Vital Signs: Vital Signs Temperature 98 F 03/03/17 09:51 Pulse Rate 71 03/03/17 09:51 Respiratory Rate 16 03/03/17 09:51 Blood Pressure 114/74 03/03/17 09:51 O2 Sat by Pulse Oximetry (%) 98 03/02/17 21:00 Constitutional: Yes: No Distress, Calm Neck: Yes: Supple Cardiovascular: Yes: Regular Rate and Rhythm Respiratory: Yes: Regular, CTA Bilaterally Gastrointestinal: Yes: Normal Bowel Sounds, Soft Edema: No - ....Imaging EKG: Report Reviewed (NSR @ 67 with new anterior ischemic changes) Problem List - Problems (1) Chest pain Code(s): R07.9 - CHEST PAIN, UNSPECIFIED Qualifiers: Chest pain type: precordial pain Qualified Code(s): R07.2 - Precordial pain (2) Hypertensive urgency Code(s): I16.0 - HYPERTENSIVE URGENCY (3) Premature ventricular contraction Code(s): I49.3 - VENTRICULAR PREMATURE DEPOLARIZATION (4) Type 2 diabetes mellitus Code(s): E11.9 - TYPE 2 DIABETES MELLITUS WITHOUT COMPLICATIONS Qualifiers: Diabetes mellitus complication status: without complication Diabetes mellitus manager terminal insulin use: without manager terminal use Qualified Code(s): E11.9 - Type 2 diabetes mellitus without complications (5) Hyperlipidemia associated with type 2 diabetes mellitus Code(s): E11.69 - TYPE 2 DIABETES MELLITUS WITH OTHER SPECIFIED COMPLICATION E78.5 - HYPERLIPIDEMIA, UNSPECIFIED (6) Subendocardial ischemia Code(s): I24.8 - OTHER FORMS OF ACUTE ISCHEMIC HEART DISEASE (7) Hypothyroidism Code(s): E03.9 - HYPOTHYROIDISM, UNSPECIFIED Qualifiers: Hypothyroidism type: unspecified Qualified Code(s): E03.9 - Hypothyroidism, unspecified Assessment/Plan 03/01/2017 Echo: Mild decreased LV fxn, preserved RV fxn, tr MR, TR 1. Chest pain syndrome - unstable angina 2. Hypertensive urgency 3. Type 2 DM 4. Hyperlipidemia 5. Hypothyroidism P:1. Trops peaked, check EKG today 2. Continue ASA 81 qd, add Plavix 75 qd, Norvasc 5 qd, losartan 100 qd, Crestor 10 qd and carvedilol 12.5 bid, d/c Naprosyn 250 bid with GI protection, start Lovenox 80 bid 3. C in AM to delineate coronary anatomy, d/c metformin pre-cath
--- NOTE | 2017-03-03 12:38 | PN ---
Progress Note, Physician Chief Complaint: Feels OK History of Present Illness: Case discussed with Dr Su, EKG changes consistent with anterior ischemia Will transfer to [facility] for cardiac cath - Current Medication List Current Medications: Active Medications Al Hydroxide/Mg Hydroxide (Mylanta Oral Suspension -) 30 ml PO Q6H PRN PRN Reason: INDIGESTION Last Admin: 03/02/17 21:03 Dose: 30 ml Amlodipine Besylate (Norvasc -) 5 mg PO DAILY [facility] Last Admin: 03/03/17 09:49 Dose: 5 mg Aspirin (Asa -) 81 mg PO DAILY [facility] Last Admin: 03/03/17 09:49 Dose: 81 mg Carvedilol (Coreg -) 12.5 mg PO BID [facility] Last Admin: 03/03/17 09:49 Dose: 12.5 mg Clopidogrel Bisulfate (Plavix -) 75 mg PO DAILY [facility] Enoxaparin Sodium (Lovenox -) 80 mg SQ BID [facility] Levothyroxine Sodium (Synthroid -) 50 mcg PO DAILY@0700 [facility] Last Admin: 03/03/17 06:22 Dose: 50 mcg Losartan Potassium (Cozaar -) 100 mg PO DAILY [facility] Last Admin: 03/03/17 09:48 Dose: 100 mg Rosuvastatin Calcium (Crestor -) 10 mg PO HS [facility] Last Admin: 03/02/17 21:03 Dose: 10 mg - Objective Vital Signs: Vital Signs Temperature 98 F 03/03/17 09:51 Pulse Rate 71 03/03/17 09:51 Respiratory Rate 16 03/03/17 09:51 Blood Pressure 114/74 03/03/17 09:51 O2 Sat by Pulse Oximetry (%) 98 03/02/17 21:00 Constitutional: Yes: No Distress Eyes: Yes: WNL HENT: Yes: WNL Neck: Yes: WNL Cardiovascular: Yes: WNL Respiratory: Yes: WNL Gastrointestinal: Yes: WNL ...Rectal Exam: Yes: Deferred Genitourinary: Yes: WNL Musculoskeletal: Yes: WNL Peripheral Pulses WNL: Yes Integumentary: Yes: WNL Neurological: Yes: Alert Assessment/Plan Cardiac cath
[2017-03-03] MEDS: ENOXAPARIN NA (PORCINE) 80 MG/0.8 ML DISP.SYRIN SQ SCH ×2 (13:29→21:21)
[2017-03-03] MEDS: CLOPIDOGREL BISULFATE 75 MG TABLET (FP) PO SCH (13:29)
[2017-03-03] MEDS: ROSUVASTATIN CA 10 MG TABLET (FP) PO SCH (21:16)
[2017-03-03] MEDS: MAG HYDROX/AL HYDROX/SIMETH 30 ML UNIT-DOSE CUP PO PRN (21:16)
[2017-03-04] MEDS: LEVOTHYROXINE NA 50 MCG TABLET (FP) PO SCH ×2 (06:04→07:39)
[2017-03-04 09:25] VITALS: BP 125/57; PULSE 72; TEMP 97.5
[2017-03-04] MEDS: LOSARTAN POTASSIUM 50 MG TABLET (FP) PO SCH (09:26)
[2017-03-04] MEDS: CARVEDILOL 12.5 MG TABLET (FP) PO SCH (09:26)
[2017-03-04] MEDS: ENOXAPARIN NA (PORCINE) 80 MG/0.8 ML DISP.SYRIN SQ SCH (09:27)
[2017-03-04] MEDS: ASPIRIN 81 MG CHEWABLE TABLETS PO SCH ×2 (09:27→11:00)
[2017-03-04] MEDS: amLODIPine BESYLATE 5 MG TABLET (FP) PO SCH (09:27)
[2017-03-04] MEDS: CLOPIDOGREL BISULFATE 75 MG TABLET (FP) PO SCH ×2 (09:28→11:00)
--- NOTE | 2017-03-04 09:32 | PN ---
Progress Note, Physician Chief Complaint: no chest pain History of Present Illness: Scheduled for cardiac cath today at [facility] - Current Medication List Current Medications: Active Medications Al Hydroxide/Mg Hydroxide (Mylanta Oral Suspension -) 30 ml PO Q6H PRN PRN Reason: INDIGESTION Last Admin: 03/03/17 21:16 Dose: 30 ml Amlodipine Besylate (Norvasc -) 5 mg PO DAILY [facility] Last Admin: 03/04/17 09:27 Dose: 5 mg Aspirin (Asa -) 81 mg PO DAILY [facility] Last Admin: 03/04/17 09:27 Dose: Not Given Carvedilol (Coreg -) 12.5 mg PO BID [facility] Last Admin: 03/04/17 09:26 Dose: 12.5 mg Clopidogrel Bisulfate (Plavix -) 75 mg PO DAILY [facility] Last Admin: 03/04/17 09:28 Dose: Not Given Enoxaparin Sodium (Lovenox -) 80 mg SQ BID [facility] Last Admin: 03/04/17 09:27 Dose: Not Given Levothyroxine Sodium (Synthroid -) 50 mcg PO DAILY@0700 [facility] Last Admin: 03/04/17 07:39 Dose: 50 mcg Losartan Potassium (Cozaar -) 100 mg PO DAILY [facility] Last Admin: 03/04/17 09:26 Dose: 100 mg Rosuvastatin Calcium (Crestor -) 10 mg PO HS [facility] Last Admin: 03/03/17 21:16 Dose: 10 mg - Objective Vital Signs: Vital Signs Temperature 97.5 F L 03/04/17 09:25 Pulse Rate 72 03/04/17 09:25 Respiratory Rate 20 03/04/17 09:25 Blood Pressure 125/57 03/04/17 09:25 O2 Sat by Pulse Oximetry (%) 98 03/03/17 21:00 Constitutional: Yes: No Distress Eyes: Yes: WNL HENT: Yes: WNL Neck: Yes: WNL Cardiovascular: Yes: WNL Respiratory: Yes: WNL ...Rectal Exam: Yes: Deferred Genitourinary: Yes: WNL Edema: No Assessment/Plan cardiac cath
--- NOTE | 2017-03-04 10:26 | PN ---
Progress Note, Physician Chief Complaint: Events noted Not in distress History of Present Illness: Patient was seen and examined. Awake and alert. Chart was reviewed Denies chest pain, SOB or palpitations Await transfer for cardiac catheterization today - Current Medication List Current Medications: Active Medications Al Hydroxide/Mg Hydroxide (Mylanta Oral Suspension -) 30 ml PO Q6H PRN PRN Reason: INDIGESTION Last Admin: 03/03/17 21:16 Dose: 30 ml Amlodipine Besylate (Norvasc -) 5 mg PO DAILY [facility] Last Admin: 03/04/17 09:27 Dose: 5 mg Aspirin (Asa -) 81 mg PO DAILY [facility] Last Admin: 03/04/17 09:27 Dose: Not Given Carvedilol (Coreg -) 12.5 mg PO BID [facility] Last Admin: 03/04/17 09:26 Dose: 12.5 mg Clopidogrel Bisulfate (Plavix -) 75 mg PO DAILY [facility] Last Admin: 03/04/17 09:28 Dose: Not Given Enoxaparin Sodium (Lovenox -) 80 mg SQ BID [facility] Last Admin: 03/04/17 09:27 Dose: Not Given Levothyroxine Sodium (Synthroid -) 50 mcg PO DAILY@0700 [facility] Last Admin: 03/04/17 07:39 Dose: 50 mcg Losartan Potassium (Cozaar -) 100 mg PO DAILY [facility] Last Admin: 03/04/17 09:26 Dose: 100 mg Rosuvastatin Calcium (Crestor -) 10 mg PO HS [facility] Last Admin: 03/03/17 21:16 Dose: 10 mg - Objective Vital Signs: Vital Signs Temperature 97.5 F L 03/04/17 09:25 Pulse Rate 72 03/04/17 09:25 Respiratory Rate 20 03/04/17 09:25 Blood Pressure 125/57 03/04/17 09:25 O2 Sat by Pulse Oximetry (%) 97 03/04/17 09:00 Neck: Yes: Supple Cardiovascular: Yes: Regular Rate and Rhythm, S1, S2 Respiratory: Yes: CTA Bilaterally Gastrointestinal: Yes: Normal Bowel Sounds, Soft. No: Tenderness Edema: No Additional Findings/Remarks: - Review of Systems Constitutional: denies: Fever. denies: Chills Cardiovascular: reports: Chest Pain, denies: Shortness of Breath. denies: Palpitations Respiratory: denies: Cough, SOB. denies: Hemoptysis, Orthopnea, PND Gastrointestinal: denies: Abdominal Pain, Constipation, Diarrhea, Melena, Nausea , Rectal Bleeding, Vomiting Genitourinary: denies: Dysuria Musculoskeletal: denies: Back Pain, Extremity Pain, Joint Pain Neurological: denies: Headache, Weakness. denies: Dizziness, Numbness, Seizure , Syncope Problem List - Problems (1) Chest pain Code(s): R07.9 - CHEST PAIN, UNSPECIFIED Qualifiers: Chest pain type: precordial pain Qualified Code(s): R07.2 - Precordial pain (2) Hyperlipidemia associated with type 2 diabetes mellitus Code(s): E11.69 - TYPE 2 DIABETES MELLITUS WITH OTHER SPECIFIED COMPLICATION E78.5 - HYPERLIPIDEMIA, UNSPECIFIED (3) Hypertensive urgency Code(s): I16.0 - HYPERTENSIVE URGENCY (4) Hypothyroidism Code(s): E03.9 - HYPOTHYROIDISM, UNSPECIFIED Qualifiers: Hypothyroidism type: unspecified Qualified Code(s): E03.9 - Hypothyroidism, unspecified (5) Subendocardial ischemia Code(s): I24.8 - OTHER FORMS OF ACUTE ISCHEMIC HEART DISEASE (6) Type 2 diabetes mellitus Code(s): E11.9 - TYPE 2 DIABETES MELLITUS WITHOUT COMPLICATIONS Qualifiers: Diabetes mellitus complication status: without complication Diabetes mellitus care home insulin use: without care home use Qualified Code(s): E11.9 - Type 2 diabetes mellitus without complications Assessment/Plan 1. Chest pain syndrome - unstable angina - small elevation of troponin 2. Hypertensive urgency 3. Type 2 DM 4. Hyperlipidemia 5. Hypothyroidism PLAN: 1. Serial cardiac enzymes 2. Continue ASA 81 mg qd and Plavix 75 mg qd. Continue Norvasc 5 mg qd, Losartan 100 mg qd, Crestor 10 mg qd and Carvedilol 12.5 mg bid. Continue Lovenox 80 mg SQ bid 3. Left heart catheterization/possible PCI today to delineate coronary anatomy. Metformin stopped. Patient is to be transferred to [facility]. Further plans are to follow. Spoke with family by bedside Doroteo Esquivel MD
[2017-03-04 11:33] LABS: INR 1.04 (0.82-1.09); PROTHROMBIN TIME (PATIENT) 11.4 SEC (9.98-11.88)
[2017-03-04 11:36] LABS: ACTIVATED PTT 39.8 SECONDS (26.9-34.4)
--- NOTE | 2017-03-04 14:16 | EKG ---
Test Reason : Blood Pressure : / mmHG Vent. Rate : 069 BPM Atrial Rate : 069 BPM P-R Int : 154 ms QRS Dur : 086 ms QT Int : 386 ms P-R-T Axes : 060 063 073 degrees QTc Int : 413 ms NORMAL SINUS RHYTHM T WAVE ABNORMALITY, CONSIDER ANTERIOR ISCHEMIA ABNORMAL ECG WHEN COMPARED WITH ECG OF 02-MAR-2017 13:02, NO SIGNIFICANT CHANGE WAS FOUND Confirmed by LV CR, LUCIAN ([id number]) on 03/04/2017 2:16:05 PM Referred By: Mattie GRECO Confirmed By:LUCIAN AWAN MD
--- NOTE | 2017-03-05 12:16 | EKG ---
Test Reason : Blood Pressure : / mmHG Vent. Rate : 096 BPM Atrial Rate : 096 BPM P-R Int : 146 ms QRS Dur : 082 ms QT Int : 366 ms P-R-T Axes : 065 042 055 degrees QTc Int : 462 ms NORMAL SINUS RHYTHM NORMAL ECG WHEN COMPARED WITH ECG OF 28-FEB-2017 15:09, PREMATURE VENTRICULAR COMPLEXES ARE NO LONGER PRESENT Confirmed by EJSSICA CR, PRABHJOT ([id number]) on 03/05/2017 12:16:27 PM Referred By: LEA Confirmed By:PRABHJOT LOPEZ MD
--- NOTE | 2017-03-10 11:46 | PN ---
Progress Note (short form) - Note Progress Note: Patient underwent C 03/04 for CAD NSTEMI demonstrating 90-95% mid LAD s/p implant 3.0x20 mm Synergry NICA at 14 [address], 90-95% prox LCx-OM1 s/p implant 3.5x16 mm NICA @ 14 [address], LV fxn normal with LVEDP 20 mmHg, Angioseal deplyed right [employer] access site, no complications, d/randy next day with f/u in office. Problem List - Problems (1) Chest pain Code(s): R07.9 - CHEST PAIN, UNSPECIFIED Qualifiers: Chest pain type: precordial pain Qualified Code(s): R07.2 - Precordial pain (2) Hypertensive urgency Code(s): I16.0 - HYPERTENSIVE URGENCY (3) Premature ventricular contraction Code(s): I49.3 - VENTRICULAR PREMATURE DEPOLARIZATION (4) Type 2 diabetes mellitus Code(s): E11.9 - TYPE 2 DIABETES MELLITUS WITHOUT COMPLICATIONS Qualifiers: Diabetes mellitus complication status: without complication Diabetes mellitus chcf insulin use: without exterminator termite use Qualified Code(s): E11.9 - Type 2 diabetes mellitus without complications (5) Hyperlipidemia associated with type 2 diabetes mellitus Code(s): E11.69 - TYPE 2 DIABETES MELLITUS WITH OTHER SPECIFIED COMPLICATION E78.5 - HYPERLIPIDEMIA, UNSPECIFIED (6) Subendocardial ischemia Code(s): I24.8 - OTHER FORMS OF ACUTE ISCHEMIC HEART DISEASE (7) Hypothyroidism Code(s): E03.9 - HYPOTHYROIDISM, UNSPECIFIED Qualifiers: Hypothyroidism type: unspecified Qualified Code(s): E03.9 - Hypothyroidism, unspecified
== END 2017-03-04 11:11 | disposition short-term general hospital (02) | DRG 311 ==
LOC: JER 13:25 → JERBED 17:14 → J4S 23:27
PROVIDERS: ADMIT Internal Medicine; ATTEND Internal Medicine
DX: I24.8 Other forms of acute ischemic heart disease (principal); I16.0 Hypertensive urgency; E78.5 Hyperlipidemia, unspecified; E11.9 Type 2 diabetes mellitus without complications; E03.9 Hypothyroidism, unspecified; Z72.0 Tobacco use; R07.9 Chest pain, unspecified; I49.3 Ventricular premature depolarization
CPT/HCPCS: 36415; 71010-TC; 71275-TC; 74174-TC; 80053; 80061; 81003; 82550; 83036; 83721; 83880; 84443; 84484; 85025; 85610; 85651; 85730; 86140; 93005; 93010; 93306-TC; 99284-25

== ENCOUNTER 2018-04-25 12:30 | Emergency (ER) | payer OTHER, BC ==
[2018-04-25 12:57] VITALS: BMI 19.8
[2018-04-25] MEDS ORDERED: SODIUM CHLORIDE 0.9% 500 ML INFUS.BAG IV ONE (13:27)
--- NOTE | 2018-04-25 13:28 | PDOC ---
History of Present Illness - General Chief Complaint: Blood Sugar Problem Stated Complaint: BLOOD SUGAR PROBLEM Time Seen by Provider: 04/25/18 13:13 History Source: Patient Exam Limitations: No Limitations - History of Present Illness Initial Comments: This is a 68 YOM with h/o NIDDM (on metformin 500 mg bid for the past 3 years without change, never on insulin, regularly measures his CBG to be in the 140s and well controlled), CAD (s/p angioplasty and on ticagrelor and ASA), and HLD who p/w uncontrolled BG on home glucometer measured at about noon today, along with lightheadedness (not room-spinning). He had never had issues controlling his BG like this in the past, has not changed his diet, has been taking his normal metformin without dose changes, and at a normal diabetic diet breakfast this morning. He otherwise has been feeling very well lately, denying f/c/n/v/d/ c, n/t/focal weakness, vision change, difficulty walking/balancing/concentrating , BROUSSARD, CP, SOB, abdominal pain, or other symptoms. He was treated a month ago with a Z-Pack for a URI/bronchitis but this resolved. His PCP is Edu Esteban. Past History - Past Medical History Allergies/Adverse Reactions: Allergies Allergy/AdvReac Type Severity Reaction Status Date / Time No Known Allergies Allergy Verified 04/25/18 12:57 Home Medications: Ambulatory Orders Amlodipine Besylate 5 mg PO DAILY 02/28/17 Atorvastatin Ca [Lipitor] 80 mg PO DAILY 02/28/17 Levothyroxine [Synthroid -] 50 mcg PO DAILY 02/28/17 Losartan Potassium 50 mg PO HS 02/28/17 metFORMIN HCL [Metformin HCl] 500 mg PO BIDAC 02/28/17 Aspirin 81 mg PO AC 04/25/18 Carvedilol [Coreg] 6.25 mg PO BID 04/25/18 Glipizide [Glucotrol] 5 mg PO DAILY #30 tablet 04/25/18 Ticagrelor [Brilinta] 90 mg PO BID 04/25/18 Anemia: No Asthma: No Cancer: No Cardiac Disorders: Yes CVA: No COPD: No CHF: No Dementia: No Diabetes: Yes (NIDDM, diet and exercise control, recent 1yr ago) GI Disorders: No Disorders: No HTN: Yes Hypercholesterolemia: Yes Liver Disease: No Seizures: No Thyroid Disease: Yes (hypothyroid) - Surgical History Abdominal Surgery: No Appendectomy: No Cardiac Surgery: No Cholecystectomy: No Gastric Stapling: No GI Surgery: No Lung Surgery: No Neurologic Surgery: No - Immunization History Td Vaccination: Yes Immunization Up to Date: Yes - Suicide/Smoking/Psychosocial Hx Smoking Status: No Smoking History: Former smoker Years of Tobacco Use: 0 Have you smoked in the past 12 months: Yes Number of Cigarettes Smoked Daily: 1 Cigars Per Day: 0 Information on smoking cessation initiated: No 'Breaking Loose' booklet given: 02/28/17 Hx Alcohol Use: No Drug/Substance Use Hx: No Substance Use Type: None Hx Substance Use Treatment: No Review of Systems - Review of Systems Able to Perform ROS?: Yes Constitutional: No: Chills, Fever, Unexplained wgt Loss HEENTM: No: Nose Congestion, Throat Pain Respiratory: No: Cough, Shortness of Breath Cardiac (ROS): Yes: Lightheadedness. No: Chest Pain, Palpitations, Syncope ABD/GI: No: Constipated, Diarrhea, Nausea, Vomiting : No: Burning, Dysuria Musculoskeletal: No: Back Pain, Neck Pain Integumentary: No: Bruising, Rash Neurological: No: Headache, Numbness, Tingling, Weakness, Dizziness Endocrine: No: Unexplained Weight Gain, Unexplained Weight Loss *Physical Exam - Vital Signs Last Vital Signs Temp Pulse Resp BP Pulse Ox 98.3 F 85 18 152/92 97 04/25/18 12:54 04/25/18 12:54 04/25/18 12:54 04/25/18 12:54 04/25/18 12:54 - Physical Exam General Appearance: Yes: Nourished, Appropriately Dressed, Other (very well appearing and nontoxic and a bit anxious adult male who answers questions appropriately, accompanied by daughter at bedside). No: Apparent Distress HEENT: positive: EOMI, ROBERTA, Normal ENT Inspection, Normal Voice, Hearing Grossly Normal. negative: Scleral Icterus (R), Scleral Icterus (L), Nasal Congestion Neck: positive: Trachea midline, Supple. negative: Tender, Rigid Respiratory/Chest: positive: Lungs Clear, Normal Breath Sounds. negative: Respiratory Distress, Crackles, Rhonchi, Stridor, Wheezing Cardiovascular: positive: Regular Rhythm, Regular Rate, S1, S2. negative: Edema , JVD, Murmur Gastrointestinal/Abdominal: positive: Normal Bowel Sounds, Soft. negative: Tender, Organomegaly, Pulsatile Mass, Guarding Musculoskeletal: positive: Normal Inspection. negative: CVA Tenderness, Decreased Range of Motion, Vertebral Tenderness Extremity: positive: Normal Capillary Refill, Normal Inspection, Normal Range of Motion. negative: Tender, Cyanosis Integumentary: positive: Normal Color, Dry, Warm. negative: Erythema, Rash, Bruising Neurologic: positive: wildlife control agent II-XII NML intact, Fully Oriented, Alert, Normal Mood/ Affect, Normal Response, Motor Strength 5/5, Finger to Nose (normal), Other ( normal gait). negative: EOM Palsy, Facial Droop, Numbness, Sensory Deficit, Confused, Disoriented Heart Score/ECG Review #1 NSR rate 82 with normal axis and intervals and no ST-T changes ED Treatment Course - LABORATORY CBC & Chemistry Diagram: 04/25/18 13:50 04/25/18 13:50 Medical Decision Making - Medical Decision Making 04/25/18 13:48 Pt with NIDDM p/w hyperglycemia, lightheadedness. Initial Vital Signs Temp Pulse Resp BP Pulse Ox 98.3 F 85 18 152/92 97 04/25/18 12:54 04/25/18 12:54 04/25/18 12:54 04/25/18 12:54 04/25/18 12:54 Exam: As noted in Physical Exam section. DDX IBNLT: DKA, HHS, simple hyperglycemia (e.g. stress hyperglycemia), alcoholic ketosis, starvation ketosis, drug-induced acidosis, salicylate toxicity, uremic acidosis, possible provoking factors non-adherence, infection/ inflammation/sepsis (i.e. UTI/pyelonephritis, PNA, bronchitis, skin infection, pancreatitis, etc), EtOH or drug use, ACS, CVA/TIA, renal failure, etc. W/U ordered: Labs as noted below, EKG CXR Initial TX ordered: IVF, glipizide EKG: Reviewed; results as noted in ECG Review section. CXR: Nothing acute Laboratory Tests 04/25/18 04/25/18 04/25/18 13:48 13:50 13:50 WBC 6.5 RBC 4.89 Hgb 15.4 Hct 45.7 MCV 93.6 MCH 31.4 MCHC 33.6 RDW 13.9 Plt Count 266 MPV 7.3 L D Absolute Neuts (auto) 4.7 Neutrophils % 71.4 Lymphocytes % 17.4 D Monocytes % 8.6 D Eosinophils % 1.5 D Basophils % 1.1 Nucleated RBC % 0 Sodium 136 Potassium 4.8 Chloride 100 Carbon Dioxide 29 Anion Gap 7 L BUN 15 Creatinine 1.1 Creat Clearance w eGFR > 60 POC Glucometer [phone] Random Glucose 255 H D Calcium 9.8 Phosphorus 3.0 Magnesium 2.3 Total Bilirubin 1.3 H AST 42 H D ALT 71 D Alkaline Phosphatase 92 Creatine Kinase 97 Troponin I < 0.02 D Total Protein 7.6 Albumin 4.5 TSH 1.67 D Urine Color Urine Appearance Urine pH Ur Specific Forest Urine Protein Urine Glucose (UA) Urine Ketones Urine Blood Urine Nitrite Urine Bilirubin Urine Urobilinogen Ur Leukocyte Esterase 04/25/18 15:05 WBC RBC Hgb Hct MCV MCH MCHC RDW Plt Count MPV Absolute Neuts (auto) Neutrophils % Lymphocytes % Monocytes % Eosinophils % Basophils % Nucleated RBC % Sodium Potassium Chloride Carbon Dioxide Anion Gap BUN Creatinine Creat Clearance w eGFR POC Glucometer Random Glucose Calcium Phosphorus Magnesium Total Bilirubin AST ALT Alkaline Phosphatase Creatine Kinase Troponin I Total Protein Albumin TSH Urine Color Colorless Urine Appearance Clear Urine pH 7.0 Ur Specific Forest 1.003 Urine Protein Negative Urine Glucose (UA) 1+ H Urine Ketones Negative Urine Blood Negative Urine Nitrite Negative Urine Bilirubin Negative Urine Urobilinogen Negative Ur Leukocyte Esterase Negative Reassessment: Patient feels improved, comfortable going home. Vital Signs Temperature 98.4 F 04/25/18 15:51 Pulse Rate 83 04/25/18 15:51 Respiratory Rate 18 04/25/18 15:51 Blood Pressure 157/87 04/25/18 15:51 O2 Sat by Pulse Oximetry (%) 98 04/25/18 15:51 DISCHARGE Workup is no longer concerning for emergency-level pathology at this time. The Pt is appropriate for discharge with close outpatient follow up. Dr. Dyer spoke with Dr. Esteban who recommended 5 mg daily glipizide PO. First dose given here, Rx sent. They are comfortable with this plan and will follow up with their PCP Dr. Esteban on Friday. Specific return precautions are discussed and they will come back to the ER if necessary. *DC/Admit/Observation/Transfer Diagnosis at time of Disposition: Hyperglycemia, Lightheaded - Discharge Dispostion Disposition: HOME Condition at time of disposition: Stable Decision to Admit order: No - Prescriptions Prescriptions: Glipizide [Glucotrol] 5 mg PO DAILY #30 tablet - Referrals Referrals: Edu Esteban MD [Staff Physician] - - Patient Instructions Printed Discharge Instructions: DI for Hyperglycemia -- Adult Additional Instructions: You were seen in the ER for high blood sugar and lightheadedness. We did an exam , imaging studies, labs, and an electrocardiogram. Your blood sugar was inthe 250s for us. We gave you a dose of glipizide and sent a prescription to [facility], and you should take this once a day. Check your blood sugar three times a day to make sure you are not too high or too low. After our assessment, we do not believe you are having a medical emergency at this time, and we believe you are safe to go home. Please follow up with your regular PCP Dr. Esteban in 1-3 days. Call their clinic, tell them you were seen in the ER, and tell them you need a follow-up. If you have any new or worsening symptoms, please come back to the ER at any time (24 hours a day). If you are having severe or life threatening symptoms, or symptoms that make it unsafe to drive or have someone drive you, please call 911. - Post Discharge Activity
[2018-04-25 14:18] LABS: ALBUMIN 4.5 g/dl (3.4-5.0); ANION GAP 7 (8-16); BILIRUBIN,TOTAL 1.3 mg/dL (0.2-1.0); BLOOD UREA NITROGEN 15 mg/dL (7-18); CALCIUM 9.8 mg/dL (8.5-10.1); CHLORIDE 100 mmol/L (98-107); CO2 29 mmol/L (21-32); CREATININE 1.1 mg/dL (0.7-1.3); GLUCOSE,RANDOM 255 mg/dL (74-106); MAGNESIUM 2.3 mg/dL (1.8-2.4); POTASSIUM 4.8 mmol/L (3.5-5.1); SGOT/AST 42 U/L (15-37); SGPT/ALT 71 U/L (12-78); SODIUM 136 mmol/L (136-145); TOT PROT 7.6 g/dl (6.4-8.2)
[2018-04-25 14:22] LABS: ALK PHOS 92 U/L (45-117)
--- NOTE | 2018-04-25 14:25 | PDOC ---
Attending Attestation - Resident Resident Name: Alpa Leblanc - ED Attending Attestation I have performed the following: I have examined & evaluated the patient, The case was reviewed & discussed with the resident, I agree w/resident's findings & plan, Exceptions are as noted - Physicial Exam PE: 04/25/18 15:00 awake alert lungs clear bilaterally, heart rrr no mrg. abd soft nt nd. skin warm and dry. nuero alert oriented. normal finger to nose, heel to cannon. CN II - XII intact. strength / - Medical Decision Making 04/25/18 14:58 differential dignisis dka hyperglycemia, honk, infection such as uti . dehydration. labs noted for sugar 250 otherwise normal. andrea esteban, nilda glipizide 5 will see on friday <Marilu Dyer - Last Filed: 04/25/18 14:58> - HPI HPI: 04/25/18 14:35 The patient is a 68 year old male with a significant past medical history of CAD s/p angioplasty, diabetes (metformin 500mg) HTN, HLD, and hypothyroidism who presents to the emergency department for evaluation of abnormal blood glucose level and lightheadedness. The patient reports abnormal blood glucose level after eating a normal breakfast this morning. He states his blood glucose levels are usually around 120-140, but notes 3 readings he checked today (298 fasted, 347 1 hr after breakfast, and 353) which prompted him to call his daughter to visit our facility for further evaluation. Pt is compliant with medications and denies prior occurrence of abnormal glucose levels. Pt states he has no other complaints and is in his USOGH. The patient denies use of new medication, sensory changes, chest pain, abdominal pain, sob, headache, f/c, n/v, and any bowel/urinary symptoms. Allergies: NKDA Social History: Former smoker. No reported alcohol or drug use. Surgical History: Cardiac stent. PCP: Dr. Edu Esteban. - Medical Decision Making Case discussed with Dr. Esteban at 14:59. <Trinity Turcios - Last Filed: 04/25/18 15:37> Heart Score/ECG Review #1 General ECG Interpretation: Sinus Rhythm, Normal Rate (82), Normal Intervals, No acute ischemic changes <Marilu Dyer - Last Filed: 04/25/18 14:58> Attestations - Attestations Documentation prepared by Trinity Turcios, acting as medical reception specialist for Marilu Dyer MD. <Trinity Turcios - Last Filed: 04/25/18 15:37>
[2018-04-25 14:45] LABS: BASO % 1.1 % (0-2.0); EOS % 1.5 % (0-4.5); HEMATOCRIT 45.7 % (35.4-49); HEMOGLOBIN 15.4 GM/dL (11.7-16.9); LYMPH % 17.4 % (8-40); MCH 31.4 pg (25.7-33.7); MCHC 33.6 g/dl (32.0-35.9); MEAN CELL VOLUME 93.6 fl (80-96); MEAN PLT VOLUME 7.3 fl (7.5-11.1); MONO % 8.6 % (3.8-10.2); NEUT % 71.4 % (42.8-82.8); PLATELET COUNT 266 K/MM3 (134-434); RBC 4.89 M/mm3 (4.00-5.60); RDW 13.9 % (11.9-15.9); WHITE BLOOD COUNT 6.5 K/mm3 (4.0-10.0)
[2018-04-25 15:36] LABS: URINE APPEARANCE CLEAR; URINE BILIRUBIN NEGATIVE (<2.0 mg/dL); URINE COLOR COLORLESS; URINE GLUCOSE (UA) 1+ (NEGATIVE); URINE KETONE NEGATIVE (NEGATIVE); URINE LEUK ESTERASE NEGATIVE (NEGATIVE); URINE NITRITE NEGATIVE (NEGATIVE); URINE PROTEIN NEGATIVE (NEGATIVE); URINE UROBILINOGEN NEGATIVE mg/dL (0.2-1.0)
[2018-04-25] MEDS ORDERED: glipiZIDE 5 MG TABLET (FP) PO ONE (15:44)
[2018-04-25 15:55] VITALS: BP 157/87; PULSE 83; TEMP 98.4
[2018-04-25] MEDS ORDERED: glipiZIDE 5 MG TABLET (FP) ONE (16:02)
--- NOTE | 2018-04-26 08:35 | EKG ---
Test Reason : Blood Pressure : / mmHG Vent. Rate : 082 BPM Atrial Rate : 082 BPM P-R Int : 120 ms QRS Dur : 082 ms QT Int : 366 ms P-R-T Axes : 050 044 054 degrees QTc Int : 427 ms NORMAL SINUS RHYTHM NORMAL ECG WHEN COMPARED WITH ECG OF 03-MAR-2017 12:56, T WAVE INVERSION NO LONGER EVIDENT IN ANTERIOR LEADS Confirmed by JESSICA CR, PRABHJOT ([id number]) on 04/26/2018 8:34:29 AM Referred By: Confirmed By:PRABHJOT LOPEZ MD
== END 2018-04-25 16:25 | disposition home or self-care (01) ==
LOC: JER 12:30
DX: E11.65 Type 2 diabetes mellitus with hyperglycemia (principal); Z79.84 Long term (current) use of oral hypoglycemic drugs; I25.10 Atherosclerotic heart disease of native coronary artery without angina pectoris; Z95.5 Presence of coronary angioplasty implant and graft; E78.5 Hyperlipidemia, unspecified; E03.9 Hypothyroidism, unspecified; Z79.82 Long term (current) use of aspirin; Z87.891 Personal history of nicotine dependence
CPT/HCPCS: 36415; 71046-TC-FY; 80053; 81003; 82550; 82962; 83735; 84100; 84443; 84484; 85025; 93005; 93010; 99284-25

== ENCOUNTER 2018-11-29 23:57 | Inpatient (IN) | payer OTHER, BC ==
[2018-11-30 00:08] VITALS: BMI 23.1
--- NOTE | 2018-11-30 00:30 | PDOC ---
History of Present Illness - General Chief Complaint: Chest Pain Stated Complaint: CHEST PAIN Time Seen by Provider: 11/30/18 00:14 - History of Present Illness Initial Comments: 11/30/18 00:29 68 yo M with h/o DM, HTN, HLD, NIDDM CAD s/p angioplasty x 2 (2017) BIBA with retrosetrnal chest, and back pain at rest. Patient reports exertional, non pleuritic, non-radiating, pressure type, pain in left sided chest (07/15) and left sided back at 1030 PM this evening at rest while watching television. EMS provided Sublingual Nitro x 2, ASA x 3 with improvement of chest pain ( 04/14). Also endorses SOB, Yousif, now improved. Adherent to Brilinta QD. Patient denies BROUSSARD, vision change, palpitations, leg pain/swelling, cough, wheezing, N/V, F,C, urinary complaints, abdominal pain, diarrhea, constipation , BPR, hematuria, lightheadedness, weakness, sensory changes. PMHx: as noted above. Denies h/o MS. ROS: as noted SHx: Social Etoh, Denies IVDA. Tobacco cessation x 3 years following 25 year ppd use. FHx: Mother MS/ Allergies: NKDA Inspector Assembly: Dr. Sierra Sadler PMD: Edu Esteban Past History - Past Medical History Allergies/Adverse Reactions: Allergies Allergy/AdvReac Type Severity Reaction Status Date / Time No Known Allergies Allergy Verified 11/30/18 00:07 Home Medications: Ambulatory Orders Amlodipine Besylate 5 mg PO DAILY 02/28/17 Atorvastatin Ca [Lipitor] 40 mg PO DAILY 02/28/17 Levothyroxine [Synthroid -] 50 mcg PO DAILY 02/28/17 Losartan Potassium 50 mg PO HS 02/28/17 metFORMIN HCL [Metformin HCl] 500 mg PO BIDAC 02/28/17 Aspirin 81 mg PO AC 04/25/18 Carvedilol [Coreg] 6.25 mg PO BID 04/25/18 Glipizide [Glucotrol] 5 mg PO DAILY #30 tablet 04/25/18 Ticagrelor [Brilinta] 90 mg PO BID 04/25/18 Anemia: No Asthma: No Cancer: No Cardiac Disorders: Yes (MS,STENT,CAD.) CVA: No COPD: No CHF: No Dementia: No Diabetes: Yes (NIDDM, diet and exercise control, recent 1yr ago) GI Disorders: No Disorders: No HTN: Yes Hypercholesterolemia: Yes Liver Disease: No Seizures: No Thyroid Disease: Yes (hypothyroid) - Surgical History Abdominal Surgery: No Appendectomy: No Cardiac Surgery: No Cholecystectomy: No Gastric Stapling: No GI Surgery: No Lung Surgery: No Neurologic Surgery: No - Immunization History Td Vaccination: Yes Immunization Up to Date: Yes - Suicide/Smoking/Psychosocial Hx Smoking Status: No Smoking History: Never smoked Years of Tobacco Use: 0 Have you smoked in the past 12 months: Yes Number of Cigarettes Smoked Daily: 1 Cigars Per Day: 0 'Breaking Loose' booklet given: 02/28/17 Hx Alcohol Use: No Drug/Substance Use Hx: No Substance Use Type: None Hx Substance Use Treatment: No Review of Systems - Review of Systems Comments:: 11/30/18 00:30 GENERAL/CONSTITUTIONAL: No fever or chills. No weakness. HEAD, EYES, EARS, NOSE AND THROAT: No change in vision. No ear pain or discharge. No sore throat. CARDIOVASCULAR: + chest pain, and shortness of breath. RESPIRATORY: No cough, wheezing, or hemoptysis. GASTROINTESTINAL: No nausea, vomiting, diarrhea or constipation. GENITOURINARY: No dysuria, frequency, or change in urination. MUSCULOSKELETAL: No joint or muscle swelling or pain. No neck or back pain. SKIN: No rash NEUROLOGIC: No headache, vertigo, loss of consciousness, or change in strength/ sensation. ENDOCRINE: No increased thirst. No abnormal weight change HEMATOLOGIC/LYMPHATIC: No anemia, easy bleeding, or history of blood clots. ALLERGIC/IMMUNOLOGIC: No hives or skin allergy. *Physical Exam - Vital Signs Last Vital Signs Temp Pulse Resp BP Pulse Ox 97.6 F 91 H 18 156/90 100 11/30/18 00:00 11/30/18 00:00 11/30/18 00:00 11/30/18 00:00 11/30/18 00:00 - Physical Exam Comments: 11/30/18 00:30 GENERAL: Awake, alert, and fully oriented, in no acute distress HEAD: No signs of trauma, normocephalic, atraumatic EYES: PERRLA, EOMI, sclera anicteric, conjunctiva clear ENT: Hearing grossly normal, nares patent, oropharynx clear without exudates. Moist mucosa NECK: Normal ROM, supple, no lymphadenopathy, JVD, or masses LUNGS: No distress, speaks full sentences, clear to auscultation bilaterally HEART: Regular rate and rhythm, normal S1 and S2, no murmurs, rubs or gallops, peripheral pulses normal and equal bilaterally. ABDOMEN: Soft, nontender, normoactive bowel sounds. No guarding, no rebound. No masses EXTREMITIES : Normal inspection, Normal range of motion, no edema. No clubbing or cyanosis. NEUROLOGICAL: Cranial nerves II through XII grossly intact. Normal speech, normal gait, no focal sensorimotor deficits SKIN: Warm, Dry, normal turgor, no rashes or lesions noted Moderate Sedation - Procedure Monitoring Vital Signs: Procedure Monitoring Vital Signs Temperature 97.6 F 11/30/18 00:00 Pulse Rate 91 H 11/30/18 00:00 Respiratory Rate 18 11/30/18 00:00 Blood Pressure 156/90 11/30/18 00:00 O2 Sat by Pulse Oximetry (%) 100 11/30/18 00:00 Heart Score/ECG Review - History History: Moderately suspicious - Electrocardiogram EKG: Normal - Age Age: >/= 65 - Risk Factors Risk Factors Heart Score: Yes Hx Hypercholesterolemia, Yes Hx Hypertension, Yes Hx Diabetes, Yes Smoking History, Yes Positive family hx of cardiac disease Based on the list above the patient has:: >/=3 risk factors or Hx atherosclerotic disease ED Treatment Course - LABORATORY CBC & Chemistry Diagram: 11/30/18 00:27 11/30/18 00:27 - RADIOLOGY Radiology Studies Ordered: Category Date Time Status CXRPORT [CHEST X-RAY PORTABLE*] [RAD] Stat Radiology 11/30/18 00:19 Ordered Medical Decision Making - Medical Decision Making 11/30/18 00:41 68 yo M with h/o DM, HTN, HLD, NIDDM CAD s/p angioplasty x 2 (2017) BIBA with retrosetrnal chest, back pain, SOB at rest. Vitals wnl, AF, A&Ox3. ACS/MS r/o. R /o PNA. Will consider pericardial and pleural effusion, pericarditis, pancreatitis. Although low suspicion, will consider AAA, Ao dissection. ED Course: 11/30/18 00:46 EKG: NSR with absent DOMINGUEZ, STD. Normal interval duration and axis. Nml R wave progression, and axis. Similiar to prior interval EKG ( 04/22) 11/30/18 01:[address] Zacarias, covering for Dr. Carlito Sorensen. Admitted to tele/obs 11/30/18 02:03 Trop: Neg CBC,CMP; Unremarkable *DC/Admit/Observation/Transfer Diagnosis at time of Disposition: Anginal chest pain at rest - Discharge Dispostion Condition at time of disposition: Stable Decision to Admit order: Yes - Referrals - Patient Instructions - Post Discharge Activity
[2018-11-30 00:38] LABS: BASO % 1.1 % (0-2.0); EOS % 5.8 % (0-4.5); HEMATOCRIT 42.5 % (35.4-49); HEMOGLOBIN 14.8 GM/dL (11.7-16.9); LYMPH % 28.9 % (8-40); MCH 32.8 pg (25.7-33.7); MCHC 34.8 g/dl (32.0-35.9); MEAN CELL VOLUME 94.3 fl (80-96); MEAN PLT VOLUME 7.5 fl (7.5-11.1); MONO % 8.9 % (3.8-10.2); NEUT % 55.3 % (42.8-82.8); PLATELET COUNT 297 K/MM3 (134-434); RBC 4.51 M/mm3 (4.00-5.60); WHITE BLOOD COUNT 6.6 K/mm3 (4.0-10.0)
[2018-11-30] MEDS ORDERED: ASPIRIN 81 MG CHEWABLE TABLETS PO ONE (00:42)
[2018-11-30] MEDS ORDERED: METOPROLOL TARTRATE 50 MG TABLET (FP) PO ONE (00:42)
[2018-11-30] MEDS ORDERED: METOPROLOL TARTRATE 5 MG/5 ML VIAL IVPUSH ONE ×2 (00:57→01:00)
[2018-11-30] MEDS ORDERED: MAG HYDROX/AL HYDROX/SIMETH 30 ML UNIT-DOSE CUP ONE (00:59)
[2018-11-30] MEDS ORDERED: MAG HYDROX/AL HYDROX/SIMETH 30 ML UNIT-DOSE CUP PO ONE (00:59)
[2018-11-30] MEDS ORDERED: METOPROLOL TARTRATE 25 MG TABLET (FP) ONE (00:59)
[2018-11-30] MEDS ORDERED: ASPIRIN 81 MG CHEWABLE TABLETS ONE (00:59)
[2018-11-30] MEDS ORDERED: METOPROLOL TARTRATE 5 MG/5 ML VIAL ONE (01:01)
[2018-11-30] MEDS ORDERED: morphine CARPU-JECT 2 MG/1 ML DISP.SYRIN IVPUSH ONE (01:04)
[2018-11-30] MEDS ORDERED: MORPHINE SULFATE 2 MG/ML VIAL ONE (01:05)
--- NOTE | 2018-11-30 01:09 | PDOC ---
Attending Attestation - HPI HPI: 11/30/18 01:32 The patient is a 68 year old male, with a significant PMH of CAD (s/p 2 stents 2017), HLD HTN, hypothyroidism who was BIBA to the emergency department with retrosternal and back pain with associated SOB, onset around 10:30 tonight, which was a 10/10. Patient took a baby aspirin and called EMS at this time. As per EMS, the patient was administered 3 baby aspirin and 2 nitroglycerin which improved the patients pain to a 7/10. Patient notes the pain is worse on exertion. Patient denies radiation but does have some pain in lower teeth. Patient had a normal stress test 1 year ago. Of note, patients PCP reduced Brilinta from 90 to 60, 2 months ago. Family history: mom heart attack @ 87 year old Social history: smoker(quit 3 years ago), social drinker PCP: Dr. Esteban <Brittany Cheema - Last Filed: 11/30/18 01:32> - Resident Resident Name: Shay Jefferson - ED Attending Attestation I have performed the following: I have examined & evaluated the patient, The case was reviewed & discussed with the resident, I agree w/resident's findings & plan - Physicial Exam PE: 11/30/18 06:32 Agree with resident exam - Medical Decision Making 11/30/18 01:07 Pt has normal CBC. Chem pending. Pt complaining of MSCP. He was treated with nitro in the ambulance. He will be given metoprolol 5mg IV here as well as oral metoprolol and 2 baby ASA. He received 4 baby ASA in the ambulance. Pt is on ticagrelor at home as well.. He will be given morphine for comfort. His EKG is NSR. He has normal exam and BP is 150s-170s. HR is 88; now down with the beta blockade 11/30/18 01:09 11/30/18 01:53 Pt will be admitted to Dr. Edu Esteban's service; telemetry observation <Bailey Hilton - Last Filed: 11/30/18 06:32> Attestations - Attestations 11/30/18 01:33 Documentation prepared by Brittany Cheema, acting as paramedical aide for Bailey Hilton MD. <Brittany Cheema - Last Filed: 11/30/18 01:32>
[2018-11-30 01:55] LABS: INR 0.9 (0.83-1.09); PROTHROMBIN TIME (PATIENT) 10.6 SEC (9.7-13.0)
[2018-11-30 01:57] LABS: ALBUMIN 4.2 g/dl (3.4-5.0); ALK PHOS 83 U/L (45-117); ANION GAP 9 MMOL/L (8-16); BILIRUBIN,TOTAL 0.6 mg/dL (0.2-1); BLOOD UREA NITROGEN 9 mg/dL (7-18); CALCIUM 9.3 mg/dL (8.5-10.1); CHLORIDE 102 mmol/L (98-107); CO2 27 mmol/L (21-32); CREATININE 0.8 mg/dL (0.55-1.3); GLUCOSE,RANDOM 92 mg/dL (74-106); POTASSIUM 3.9 mmol/L (3.5-5.1); SGOT/AST 23 U/L (15-37); SGPT/ALT 39 U/L (13-61); SODIUM 138 mmol/L (136-145); TOT PROT 7.3 g/dl (6.4-8.2)
[2018-11-30 09:03] LABS: LIPASE 308 U/L (73-393)
--- NOTE | 2018-11-30 09:32 | EKG ---
Test Reason : Blood Pressure : / mmHG Vent. Rate : 081 BPM Atrial Rate : 081 BPM P-R Int : 152 ms QRS Dur : 078 ms QT Int : 378 ms P-R-T Axes : 067 054 072 degrees QTc Int : 439 ms NORMAL SINUS RHYTHM NORMAL ECG WHEN COMPARED WITH ECG OF 30-NOV-2018 00:16, NO SIGNIFICANT CHANGE WAS FOUND Confirmed by LUCIAN AWAN MD ([id number]) on 11/30/2018 9:32:29 AM Referred By: CHERYL SINGH Confirmed By:LUCIAN AWAN MD
--- NOTE | 2018-11-30 09:41 | EKG ---
Test Reason : Blood Pressure : / mmHG Vent. Rate : 084 BPM Atrial Rate : 084 BPM P-R Int : 150 ms QRS Dur : 072 ms QT Int : 370 ms P-R-T Axes : 070 058 067 degrees QTc Int : 437 ms NORMAL SINUS RHYTHM NORMAL ECG WHEN COMPARED WITH ECG OF 25-APR-2018 13:44, NO SIGNIFICANT CHANGE WAS FOUND Confirmed by LUCIAN AWAN MD ([id number]) on 11/30/2018 9:41:37 AM Referred By: Confirmed By:LUCIAN AWAN MD
[2018-11-30] MEDS ORDERED: amLODIPine BESYLATE 5 MG TABLET (FP) ONE (10:01)
--- NOTE | 2018-11-30 12:17 | CON.CARD ---
Consult Consult Specialty:: Cardiology Referred by:: Emergency Medicine Reason for Consultation:: Chest pressure - History of Present Illness Chief Complaint: Chest pain History of Present Illness: 68 yo M with h/o DM, HTN, HLD, NIDDM CAD s/p angioplasty x 2 (2016) BIBA with retrosternal chest and back pressure and burning at rest. Patient reports exertional, non pleuritic, non-radiating, pressure and burning pain in left sided chest (07/15) and left sided back at 1030 PM this evening at rest while watching television. Patient reports symptoms worse with lying down, improved after drinking warm milk, denies belching. EMS provided Sublingual Nitro x 2, ASA x 3 with improvement of chest pain ( 04/14). Also endorses SOB, VILLARREAL, since improved. Adherent to medications, denies near or true syncope, palpitations, orthopnea, PND or LE edema. PMHx: as noted above. Denies h/o LA. ROS: as noted SHx: Social Etoh, Denies IVDA. Tobacco cessation x 3 years following 25 year ppd use. FHx: Mother LA/ Allergies: NKDA Nurse Head: Dr. 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 History of Recent Travel: Yes (three months ago to [place]) Home Medications - Allergies Allergies/Adverse Reactions: Allergies Allergy/AdvReac Type Severity Reaction Status Date / Time No Known Allergies Allergy Verified 11/30/18 00:07 - Home Medications Home Medications: Ambulatory Orders Amlodipine Besylate 5 mg PO DAILY 02/28/17 Atorvastatin Ca [Lipitor] 40 mg PO DAILY 02/28/17 Levothyroxine [Synthroid -] 50 mcg PO DAILY 02/28/17 Losartan Potassium 50 mg PO HS 02/28/17 metFORMIN HCL [Metformin HCl] 500 mg PO BIDAC 02/28/17 Aspirin 81 mg PO AC 04/25/18 Carvedilol [Coreg] 6.25 mg PO BID 04/25/18 Glipizide [Glucotrol] 5 mg PO DAILY #30 tablet 04/25/18 Ticagrelor [Brilinta] 90 mg PO BID 04/25/18 Review of Systems - Review of Systems Cardiovascular: reports: Chest Pain Respiratory: reports: SOB, SOB on Exertion Vital Signs: Vital Signs Temperature 97.5 F L 11/30/18 09:00 Pulse Rate 75 11/30/18 10:50 Respiratory Rate 17 11/30/18 09:00 Blood Pressure 153/86 11/30/18 10:50 O2 Sat by Pulse Oximetry (%) 97 11/30/18 03:01 Constitutional: Yes: No Distress, Calm Neck: Yes: Supple Respiratory: Yes: Regular, CTA Bilaterally Gastrointestinal: Yes: Soft, Hypoactive Bowel Sounds Cardiovascular: Yes: Regular Rate and Rhythm JVD: No Carotid Bruit: No Heart Sounds: Yes: S1, S2 Edema: No - Other Data Labs, Other Data: CBC, BMP 11/30/18 00:27 11/30/18 00:27 INR, PTT INR 0.90 (0.83-1.09) 11/30/18 01:30 Troponin, BNP 11/30/18 11/30/18 00:27 09:22 Troponin I 0.04 0.11 H Troponin, BNP 11/30/18 11/30/18 00:27 09:22 Troponin I 0.04 0.11 H NSR @ [address]-T changes Problem List - Problems (1) Atypical chest pain Code(s): R07.89 - OTHER CHEST PAIN (2) Coronary artery disease Code(s): I25.10 - ATHSCL HEART DISEASE OF [place] CORONARY ARTERY W/O ANG PCTRS Qualifiers: Coronary Disease-Associated Artery/Lesion type: [place] artery [place] vs. transplanted heart: [place] heart Associated angina: without angina Qualified Code(s): I25.10 - Atherosclerotic heart disease of [place] coronary artery without angina pectoris (3) S/P insertion of non-drug eluting coronary artery stent Code(s): Z95.5 - PRESENCE OF CORONARY ANGIOPLASTY IMPLANT AND GRAFT (4) Non-ST elevation myocardial infarction (NSTEMI) greater than 8 weeks ago Code(s): I25.2 - OLD MYOCARDIAL INFARCTION (5) Hyperlipidemia associated with type 2 diabetes mellitus Code(s): E11.69 - TYPE 2 DIABETES MELLITUS WITH OTHER SPECIFIED COMPLICATION; E78.5 - HYPERLIPIDEMIA, UNSPECIFIED (6) Hypothyroidism Code(s): E03.9 - HYPOTHYROIDISM, UNSPECIFIED Qualifiers: Hypothyroidism type: unspecified Qualified Code(s): E03.9 - Hypothyroidism , unspecified (7) Subendocardial ischemia Code(s): I24.8 - OTHER FORMS OF ACUTE ISCHEMIC HEART DISEASE (8) Type 2 diabetes mellitus Code(s): E11.9 - TYPE 2 DIABETES MELLITUS WITHOUT COMPLICATIONS Qualifiers: Diabetes mellitus bed bug exterminator insulin use: without bed bug exterminator use Diabetes mellitus complication status: without complication Qualified Code(s): E11.9 - Type 2 diabetes mellitus without complications (9) Hypertensive urgency Code(s): I16.0 - HYPERTENSIVE URGENCY Assessment/Plan 1. Atypical chest pain improving with positional changes and warm liquid suggestive of GERD 2. CAD h/o NSTEMI s/p NICA mid LAD and OM1 with demand ichemia in context of... 3. Hypertensive urgency (BP 179/108) 4. Type 2 DM 5. Hypothyroidism 6. Hyperlipidemia P:1. GERD maneuvers, PPI, antacids as needed 2. Trend trops to document peak 3. Resume Norvasc 5 qd, Lipitor 40 qd, losartan 100 qd, ASA 81 qd, carvedilol 6.25 bid, Brilinta 60 bid, Zetia 10 qd 4. D/c planning once trops downtrending, f/u with Dr. Esquivel for further work-up 5. Thank you for consultative opportunity
[2018-11-30] MEDS ORDERED: MAG HYDROX/AL HYDROX/SIMETH 30 ML UNIT-DOSE CUP PO PRN (12:54)
[2018-11-30] MEDS: amLODIPine BESYLATE 5 MG TABLET (FP) PO SCH (13:36)
[2018-11-30] MEDS: CARVEDILOL 6.25 MG TABLET (FP) PO SCH ×2 (14:49→21:49)
[2018-11-30] MEDS: TICAGRELOR 60 MG TABLET PO SCH ×2 (14:49→21:04)
[2018-11-30] MEDS: PANTOPRAZOLE 20 MG TABLET (FP) PO SCH (14:49)
[2018-11-30] MEDS: EZETIMIBE 10 MG TABLET (FP) PO SCH (14:50)
[2018-11-30] MEDS ORDERED: metFORMIN HCL 500 MG TABLET (FP) ONE (16:28)
[2018-11-30] MEDS: metFORMIN HCL 500 MG TABLET (FP) PO SCH (16:50)
[2018-11-30] MEDS ORDERED: ATORVASTATIN CA 40 MG TABLET (FP) ONE (21:05)
[2018-11-30] MEDS ORDERED: CARVEDILOL 3.125 MG TABLET (FP) ONE (21:05)
[2018-11-30] MEDS ORDERED: LOSARTAN POTASSIUM 50 MG TABLET (FP) PO ONE (21:15)
[2018-11-30] MEDS: ATORVASTATIN CA 40 MG TABLET (FP) PO SCH (21:49)
[2018-12-01] MEDS ORDERED: glipiZIDE 5 MG TABLET (FP) ONE (04:58)
[2018-12-01] MEDS ORDERED: LEVOTHYROXINE NA 25 MCG TABLET (FP) ONE (04:59)
[2018-12-01] MEDS ORDERED: metFORMIN HCL 500 MG TABLET (FP) ONE (04:59)
[2018-12-01] MEDS: LEVOTHYROXINE NA 50 MCG TABLET (FP) PO SCH (06:21)
[2018-12-01] MEDS: glipiZIDE-XL 5 MG TAB.ER.24 PO SCH (06:21)
[2018-12-01] MEDS: metFORMIN HCL 500 MG TABLET (FP) PO SCH ×2 (06:21→16:35)
--- NOTE | 2018-12-01 09:59 | HP ---
DATE OF ADMISSION: 11/30/2018 This is a 68-year-old - male know to have diabetes, status post stent insertion 2 years ago, came to the emergency room yesterday morning with complaints of chest pain. In the ER, EKG did not have changes. His troponin was positive for CA; so, decided to get admitted. He was waiting in the ER since yesterday. No bed in the telemetry. This morning, patient is very upset that he did not go upstairs; so, I am degrading to a regular floor. He did not have any chest pain since yesterday morning. Was evaluated by Dr. Calle yesterday. PHYSICAL EXAMINATION: Vital Signs: Today, his blood pressure is 140/86, pulse 78, respirations 20, temperature 98. HEENT: Unremarkable. Neck: Supple. No JVD. Lungs: Clear. Heart: S1, S2 normal. No S3, S4. Abdomen: Soft. Legs: No edema. Neurological: Grossly normal. Electrocardiogram: Normal sinus rhythm. X-ray of chest: No acute pathology. LABORATORY REPORTS: WBC 6.6, hemoglobin 14.8, hematocrit 42. Chemistry: Electrolytes are normal. BUN 9, creatinine 0.8. LFTs are normal. Troponin yesterday was 0.18. This morning, it is 0.2. Blood sugar 134. IMPRESSION: 1. Acute chest pain, myocardial infarction ruled in. 2. Diabetes. PLAN: Admit. Will follow. Cardiology followup. Ta [id number]
--- NOTE | 2018-12-01 10:44 | PN ---
Progress Note, Physician Chief Complaint: Not in distress History of Present Illness: Patient was seen and examined. Awake and alert. Chart was reviewed Denies chest pain at the moment. Denies SOB or palpitations - Current Medication List Current Medications: Active Medications Al Hydroxide/Mg Hydroxide (Mylanta Oral Suspension -) 30 ml PO Q6H PRN PRN Reason: DYSPEPSIA Amlodipine Besylate (Norvasc -) 5 mg PO DAILY [facility] Last Admin: 11/30/18 13:36 Dose: 5 mg Aspirin (Asa -) 81 mg PO DAILY [facility] Atorvastatin Calcium (Lipitor -) 40 mg PO HS [facility] Last Admin: 11/30/18 21:49 Dose: 40 mg Carvedilol (Coreg -) 6.25 mg PO BID [facility] Last Admin: 11/30/18 21:49 Dose: 6.25 mg Ezetimibe (Zetia -) 10 mg PO DAILY [facility] Last Admin: 11/30/18 14:50 Dose: 10 mg Glipizide (Glucotrol Xl -) 5 mg PO DAILY@0700 [facility] Last Admin: 12/01/18 06:21 Dose: 5 mg Levothyroxine Sodium (Synthroid -) 50 mcg PO DAILY@0700 [facility] Last Admin: 12/01/18 06:21 Dose: 50 mcg Losartan Potassium (Cozaar -) 100 mg PO DAILY [facility] Metformin HCl (Glucophage -) 500 mg PO BID@0700,1630 [facility] Last Admin: 12/01/18 06:21 Dose: 500 mg Pantoprazole Sodium (Protonix -) 20 mg PO DAILY [facility] Last Admin: 11/30/18 14:49 Dose: 20 mg Ticagrelor (Brilinta) 60 mg PO BID [facility] Last Admin: 11/30/18 21:04 Dose: Not Given - Objective Vital Signs: Vital Signs Temperature 97.9 F 12/01/18 06:01 Pulse Rate 78 12/01/18 06:01 Respiratory Rate 17 12/01/18 06:01 Blood Pressure 140/86 12/01/18 06:01 O2 Sat by Pulse Oximetry (%) 97 12/01/18 07:36 Eyes: Yes: PERRL HENT: Yes: Atraumatic Neck: Yes: Supple Cardiovascular: Yes: Regular Rate and Rhythm, S1, S2 Respiratory: Yes: CTA Bilaterally Gastrointestinal: Yes: Normal Bowel Sounds, Soft. No: Tenderness Edema: No Additional Findings/Remarks: - Review of Systems Constitutional: denies: Chills, Fever Cardiovascular: (+) Chest Pain, denies: Palpitations, Shortness of Breath Respiratory: denies: Cough, Hemoptysis, Orthopnea, PND, SOB, SOB on Exertion Gastrointestinal: denies: Constipation, Nausea. denies: Melena, Rectal Bleeding , Vomiting Genitourinary: denies: Dysuria, Hematuria Neurological: denies: Change in Speech, Unsteady Gait. denies: Dizziness, Headache, Seizure, Syncope Labs: CBC, BMP 11/30/18 00:27 11/30/18 00:27 INR, PTT INR 0.90 (0.83-1.09) 11/30/18 01:30 Problem List - Problems (1) Demand ischemia Code(s): I24.8 - OTHER FORMS OF ACUTE ISCHEMIC HEART DISEASE (2) Coronary artery disease Code(s): I25.10 - ATHSCL HEART DISEASE OF [place] CORONARY ARTERY W/O ANG PCTRS Qualifiers: Coronary Disease-Associated Artery/Lesion type: [place] artery [place] vs. transplanted heart: [place] heart Associated angina: without angina Qualified Code(s): I25.10 - Atherosclerotic heart disease of [place] coronary artery without angina pectoris (3) Non-ST elevation myocardial infarction (NSTEMI) greater than 8 weeks ago Code(s): I25.2 - OLD MYOCARDIAL INFARCTION (4) S/P insertion of non-drug eluting coronary artery stent Code(s): Z95.5 - PRESENCE OF CORONARY ANGIOPLASTY IMPLANT AND GRAFT (5) Chest pain Code(s): R07.9 - CHEST PAIN, UNSPECIFIED Qualifiers: Chest pain type: precordial pain Qualified Code(s): R07.2 - Precordial pain (6) Hypertensive urgency Code(s): I16.0 - HYPERTENSIVE URGENCY (7) Hypothyroidism Code(s): E03.9 - HYPOTHYROIDISM, UNSPECIFIED Qualifiers: Hypothyroidism type: unspecified Qualified Code(s): E03.9 - Hypothyroidism , unspecified Assessment/Plan 1. Atypical chest pain suggests GERD, but also has mild elevation of troponin suggesting demand ischemia 2. CAD h/o NSTEMI s/p NICA mid LAD and OM1 with demand ischemia 3. Hypertensive urgency 4. Type 2 DM 5. Hypothyroidism 6. Hyperlipidemia PLAN: 1. PPI 2. Trend trops to document peak 3. Continue Norvasc 5 mg QD, Lipitor 40 mg QHS, Losartan 100 mg QD, ASA 81 mg QD , Carvedilol 6.25 mg BID, Brilinta 60 mg BID and Zetia 10 mg QD 4. Further cardiac evaluation to be decided. Last nuclear MPI was in office last year and it showed small zone of inferior ischemia (mild intensity) treated medically. 5. Admit to telemetry until troponins are trending down Further plans are to follow Doroteo Esquivel MD
[2018-12-01] MEDS: amLODIPine BESYLATE 5 MG TABLET (FP) PO SCH (13:27)
[2018-12-01] MEDS: TICAGRELOR 60 MG TABLET PO SCH ×2 (13:27→23:41)
[2018-12-01] MEDS: ASPIRIN 81 MG CHEWABLE TABLETS PO SCH (13:27)
[2018-12-01] MEDS: LOSARTAN POTASSIUM 50 MG TABLET (FP) PO SCH (13:27)
[2018-12-01] MEDS: EZETIMIBE 10 MG TABLET (FP) PO SCH (13:27)
[2018-12-01] MEDS: PANTOPRAZOLE 20 MG TABLET (FP) PO SCH (13:27)
[2018-12-01] MEDS: CARVEDILOL 6.25 MG TABLET (FP) PO SCH ×2 (13:27→21:52)
[2018-12-01] MEDS: ATORVASTATIN CA 40 MG TABLET (FP) PO SCH (21:52)
[2018-12-02] MEDS: glipiZIDE-XL 5 MG TAB.ER.24 PO SCH (06:44)
[2018-12-02] MEDS: LEVOTHYROXINE NA 50 MCG TABLET (FP) PO SCH (06:44)
[2018-12-02] MEDS: metFORMIN HCL 500 MG TABLET (FP) PO SCH (06:44)
--- NOTE | 2018-12-02 09:19 | PN ---
Progress Note, Physician History of Present Illness: Patient reports resolution of positional retrosternal chest and back pressure and burning, BP with improved control. - Current Medication List Current Medications: Active Medications Al Hydroxide/Mg Hydroxide (Mylanta Oral Suspension -) 30 ml PO Q6H PRN PRN Reason: DYSPEPSIA Amlodipine Besylate (Norvasc -) 5 mg PO DAILY [facility] Last Admin: 12/01/18 13:27 Dose: 5 mg Aspirin (Asa -) 81 mg PO DAILY [facility] Last Admin: 12/01/18 13:27 Dose: 81 mg Atorvastatin Calcium (Lipitor -) 40 mg PO HS [facility] Last Admin: 12/01/18 21:52 Dose: 40 mg Carvedilol (Coreg -) 6.25 mg PO BID [facility] Last Admin: 12/01/18 21:52 Dose: 6.25 mg Ezetimibe (Zetia -) 10 mg PO DAILY [facility] Last Admin: 12/01/18 13:27 Dose: 10 mg Glipizide (Glucotrol Xl -) 5 mg PO DAILY@0700 [facility] Last Admin: 12/02/18 06:44 Dose: 5 mg Levothyroxine Sodium (Synthroid -) 50 mcg PO DAILY@0700 [facility] Last Admin: 12/02/18 06:44 Dose: 50 mcg Losartan Potassium (Cozaar -) 100 mg PO DAILY [facility] Last Admin: 12/01/18 13:27 Dose: 100 mg Metformin HCl (Glucophage -) 500 mg PO BID@0700,1630 [facility] Last Admin: 12/02/18 06:44 Dose: 500 mg Pantoprazole Sodium (Protonix -) 20 mg PO DAILY [facility] Last Admin: 12/01/18 13:27 Dose: 20 mg Ticagrelor (Brilinta) 60 mg PO BID [facility] Last Admin: 12/01/18 23:41 Dose: 60 mg - Objective Vital Signs: Vital Signs Temperature 97.9 F 12/02/18 05:30 Pulse Rate 83 12/02/18 05:30 Respiratory Rate 18 12/02/18 05:30 Blood Pressure 141/86 12/02/18 05:30 O2 Sat by Pulse Oximetry (%) 97 12/02/18 04:00 Constitutional: Yes: No Distress, Calm, Thin Neck: Yes: Supple Cardiovascular: Yes: Regular Rate and Rhythm Respiratory: Yes: Regular, CTA Bilaterally Gastrointestinal: Yes: Normal Bowel Sounds, Soft Edema: No Labs: CBC, BMP 11/30/18 00:27 11/30/18 00:27 INR, PTT INR 0.90 (0.83-1.09) 11/30/18 01:30 - ....Imaging EKG: Report Reviewed (Tele: NSR) Problem List - Problems (1) Atypical chest pain Code(s): R07.89 - OTHER CHEST PAIN (2) Coronary artery disease Code(s): I25.10 - ATHSCL HEART DISEASE OF [place] CORONARY ARTERY W/O ANG PCTRS Qualifiers: Coronary Disease-Associated Artery/Lesion type: [place] artery [place] vs. transplanted heart: [place] heart Associated angina: without angina Qualified Code(s): I25.10 - Atherosclerotic heart disease of [place] coronary artery without angina pectoris (3) S/P insertion of non-drug eluting coronary artery stent Code(s): Z95.5 - PRESENCE OF CORONARY ANGIOPLASTY IMPLANT AND GRAFT (4) Non-ST elevation myocardial infarction (NSTEMI) greater than 8 weeks ago Code(s): I25.2 - OLD MYOCARDIAL INFARCTION (5) Hyperlipidemia associated with type 2 diabetes mellitus Code(s): E11.69 - TYPE 2 DIABETES MELLITUS WITH OTHER SPECIFIED COMPLICATION; E78.5 - HYPERLIPIDEMIA, UNSPECIFIED (6) Hypothyroidism Code(s): E03.9 - HYPOTHYROIDISM, UNSPECIFIED Qualifiers: Hypothyroidism type: unspecified Qualified Code(s): E03.9 - Hypothyroidism , unspecified (7) Subendocardial ischemia Code(s): I24.8 - OTHER FORMS OF ACUTE ISCHEMIC HEART DISEASE (8) Type 2 diabetes mellitus Code(s): E11.9 - TYPE 2 DIABETES MELLITUS WITHOUT COMPLICATIONS Qualifiers: Diabetes mellitus intermediate card tender insulin use: without intermediate card tender use Diabetes mellitus complication status: without complication Qualified Code(s): E11.9 - Type 2 diabetes mellitus without complications (9) Hypertensive urgency Code(s): I16.0 - HYPERTENSIVE URGENCY Assessment/Plan Last nuclear MPI was in office last year and it showed small zone of inferior ischemia (mild intensity) treated medically. 1. Atypical chest pain with positional changes and warm liquid suggestive of GERD resolved 2. CAD h/o NSTEMI s/p NICA mid LAD and OM1 with demand ichemia in context of... 3. Hypertensive urgency since resolved 4. Type 2 DM 5. Hypothyroidism 6. Hyperlipidemia P:1. GERD maneuvers, PPI, antacids as needed 2. Trops are downtrending 3. Continue Norvasc 5 qd, Lipitor 40 qd, losartan 100 qd, ASA 81 qd, carvedilol 6.25 bid, Brilinta 60 bid, Zetia 10 qd 4. D/c planning as trops downtrending, f/u with Dr. Esquivel for further work-up December 21, 2017
--- NOTE | 2018-12-02 09:36 | PN ---
Progress Note, Physician Chief Complaint: Feels better History of Present Illness: Dr Gomez cardiology consult appreciated - Current Medication List Current Medications: Active Medications Al Hydroxide/Mg Hydroxide (Mylanta Oral Suspension -) 30 ml PO Q6H PRN PRN Reason: DYSPEPSIA Amlodipine Besylate (Norvasc -) 5 mg PO DAILY [facility] Last Admin: 12/01/18 13:27 Dose: 5 mg Aspirin (Asa -) 81 mg PO DAILY [facility] Last Admin: 12/01/18 13:27 Dose: 81 mg Atorvastatin Calcium (Lipitor -) 40 mg PO HS [facility] Last Admin: 12/01/18 21:52 Dose: 40 mg Carvedilol (Coreg -) 6.25 mg PO BID [facility] Last Admin: 12/01/18 21:52 Dose: 6.25 mg Ezetimibe (Zetia -) 10 mg PO DAILY [facility] Last Admin: 12/01/18 13:27 Dose: 10 mg Glipizide (Glucotrol Xl -) 5 mg PO DAILY@0700 [facility] Last Admin: 12/02/18 06:44 Dose: 5 mg Levothyroxine Sodium (Synthroid -) 50 mcg PO DAILY@0700 [facility] Last Admin: 12/02/18 06:44 Dose: 50 mcg Losartan Potassium (Cozaar -) 100 mg PO DAILY [facility] Last Admin: 12/01/18 13:27 Dose: 100 mg Metformin HCl (Glucophage -) 500 mg PO BID@0700,1630 [facility] Last Admin: 12/02/18 06:44 Dose: 500 mg Pantoprazole Sodium (Protonix -) 20 mg PO DAILY [facility] Last Admin: 12/01/18 13:27 Dose: 20 mg Ticagrelor (Brilinta) 60 mg PO BID [facility] Last Admin: 12/01/18 23:41 Dose: 60 mg - Objective Vital Signs: Vital Signs Temperature 97.9 F 12/02/18 05:30 Pulse Rate 83 12/02/18 05:30 Respiratory Rate 18 12/02/18 05:30 Blood Pressure 141/86 12/02/18 05:30 O2 Sat by Pulse Oximetry (%) 97 12/02/18 04:00 Constitutional: Yes: No Distress Eyes: Yes: WNL HENT: Yes: WNL Neck: Yes: WNL Cardiovascular: Yes: WNL Respiratory: Yes: WNL Gastrointestinal: Yes: WNL ...Rectal Exam: Yes: Deferred Genitourinary: Yes: WNL Musculoskeletal: Yes: WNL Edema: No Neurological: Yes: Alert Labs: CBC, BMP 11/30/18 00:27 11/30/18 00:27 INR, PTT INR 0.90 (0.83-1.09) 11/30/18 01:30 Assessment/Plan No chest pain Troponin down Will discuss with cardiology
[2018-12-02] MEDS: ASPIRIN 81 MG CHEWABLE TABLETS PO SCH (09:40)
[2018-12-02] MEDS: amLODIPine BESYLATE 5 MG TABLET (FP) PO SCH (09:41)
[2018-12-02] MEDS: PANTOPRAZOLE 20 MG TABLET (FP) PO SCH (09:41)
[2018-12-02] MEDS: CARVEDILOL 6.25 MG TABLET (FP) PO SCH (09:41)
[2018-12-02] MEDS: LOSARTAN POTASSIUM 50 MG TABLET (FP) PO SCH (09:41)
[2018-12-02] MEDS: TICAGRELOR 60 MG TABLET PO SCH (09:42)
[2018-12-02] MEDS: EZETIMIBE 10 MG TABLET (FP) PO SCH (09:42)
[2018-12-02 10:21] VITALS: BP 140/87; PULSE 77; TEMP 97.8
--- NOTE | 2018-12-02 12:34 | EKG ---
Test Reason : Blood Pressure : / mmHG Vent. Rate : 082 BPM Atrial Rate : 082 BPM P-R Int : 152 ms QRS Dur : 080 ms QT Int : 366 ms P-R-T Axes : 062 051 063 degrees QTc Int : 427 ms NORMAL SINUS RHYTHM NORMAL ECG WHEN COMPARED WITH ECG OF 30-NOV-2018 09:01, NO SIGNIFICANT CHANGE WAS FOUND Confirmed by PRABHJOT LOPEZ MD ([id number]) on 12/02/2018 12:34:28 PM Referred By: FRANCISCO BRUNO Confirmed By:PRABHJOT LOPEZ MD
== END 2018-12-02 13:03 | disposition home or self-care (01) | DRG 392 ==
LOC: JER 23:57 → JERBED 11-30 01:05 → OBSVTOIN 11-30 01:05 → J4W 12-01 20:45
PROVIDERS: ADMIT Internal Medicine Cardiovascular Disease; ATTEND Internal Medicine Cardiovascular Disease
DX: K21.9 Gastro-esophageal reflux disease without esophagitis (principal); I10 Essential (primary) hypertension; E78.5 Hyperlipidemia, unspecified; E11.9 Type 2 diabetes mellitus without complications; I25.10 Atherosclerotic heart disease of native coronary artery without angina pectoris; Z79.84 Long term (current) use of oral hypoglycemic drugs; E03.9 Hypothyroidism, unspecified; R07.89 Other chest pain; I25.2 Old myocardial infarction; I16.0 Hypertensive urgency
CPT/HCPCS: 36415; 71045-TC-FY; 80053; 82550; 82962; 83690; 84484; 85025; 85610; 93005; 93010; 99285-25

== ENCOUNTER 2019-03-17 02:25 | Emergency (ER) | payer OTHER, BC ==
[2019-03-17 02:41] VITALS: TEMP 97.9; BMI 23.1
--- NOTE | 2019-03-17 03:34 | PDOC ---
History of Present Illness - General Chief Complaint: Laceration Stated Complaint: INJURY,CHIN Time Seen by Provider: 03/17/19 02:35 - History of Present Illness Initial Comments: 03/17/19 03:33 69 year old male with a PMH CAD (s/p angioplasty x2) NIDDM, HTN, HLD who presents to the ED s/p fall. Patient was laying in bed when he rolled over and hit his face and chin on the edge of the coffee table. Denies LOC. States his tetanus is UTD. Currently on A/C NKDA Past History - Past Medical History Allergies/Adverse Reactions: Allergies Allergy/AdvReac Type Severity Reaction Status Date / Time No Known Allergies Allergy Verified 03/17/19 02:41 Home Medications: Ambulatory Orders Amlodipine Besylate 5 mg PO DAILY 02/28/17 Atorvastatin Ca [Lipitor] 40 mg PO DAILY 02/28/17 Levothyroxine [Synthroid -] 50 mcg PO DAILY 02/28/17 Losartan Potassium 50 mg PO HS 02/28/17 metFORMIN HCL [Metformin HCl] 500 mg PO BIDAC 02/28/17 Aspirin 81 mg PO AC 04/25/18 Carvedilol [Coreg] 6.25 mg PO BID 04/25/18 Glipizide [Glucotrol] 5 mg PO DAILY #30 tablet 04/25/18 Ticagrelor [Brilinta] 90 mg PO BID 04/25/18 Amlodipine Besylate [Norvasc -] 5 mg PO DAILY tablet 12/02/18 Aspirin [ASA -] 81 mg PO DAILY tab.chew 12/02/18 Atorvastatin Ca [Lipitor] 40 mg PO HS tablet 12/02/18 Carvedilol [Coreg -] 6.25 mg PO BID tablet 12/02/18 Ezetimibe [Zetia -] 10 mg PO DAILY tablet 12/02/18 Glipizide Xl [Glucotrol Xl -] 5 mg PO DAILY@0700 tab.er.24 12/02/18 Levothyroxine [Synthroid -] 50 mcg PO DAILY@0700 tablet 12/02/18 Losartan Potassium [Cozaar -] 100 mg PO DAILY tablet 12/02/18 Mag Hydrox/Al Hydrox/Simeth [Mylanta Oral Suspension -] 30 ml PO Q6H PRN cup Pantoprazole Sodium [Protonix -] 20 mg PO DAILY tablet.ec 12/02/18 Ticagrelor [Brilinta] 60 mg PO BID tablet 12/02/18 metFORMIN HCL [Glucophage -] 500 mg PO BID@0700,1630 tablet 12/02/18 Anemia: No Asthma: No Cancer: No Cardiac Disorders: Yes (VT,STENT x2,CAD.) CVA: No COPD: No CHF: No Dementia: No Diabetes: Yes GI Disorders: No Disorders: No HTN: Yes Hypercholesterolemia: Yes Liver Disease: No Seizures: No Thyroid Disease: Yes (hypothyroid) - Surgical History Abdominal Surgery: No Appendectomy: No Cardiac Surgery: No Cholecystectomy: No Gastric Stapling: No GI Surgery: No Lung Surgery: No Neurologic Surgery: No - Immunization History Td Vaccination: Yes Immunization Up to Date: Yes - Suicide/Smoking/Psychosocial Hx Smoking Status: No Smoking History: Never smoked Years of Tobacco Use: 0 Have you smoked in the past 12 months: No Number of Cigarettes Smoked Daily: 1 Cigars Per Day: 0 Information on smoking cessation initiated: No 'Breaking Loose' booklet given: 02/28/17 Hx Alcohol Use: No Drug/Substance Use Hx: No Substance Use Type: None Hx Substance Use Treatment: No Review of Systems - Review of Systems Constitutional: No: Fever HEENTM: No: Blurred Vision, Double Vision Respiratory: No: Cough, Shortness of Breath Cardiac (ROS): No: Chest Pain, Lightheadedness, Palpitations ABD/GI: No: Constipated, Diarrhea, Nausea, Vomiting *Physical Exam - Vital Signs Last Vital Signs Temp Pulse Resp BP Pulse Ox 97.9 F 84 16 178/99 H 100 03/17/19 02:25 03/17/19 02:25 03/17/19 02:25 03/17/19 02:25 03/17/19 02:25 - Physical Exam Comments: 03/17/19 03:38 HEENT: 5 cm forehead abrasion; 3 linear 1 cm superior eyelid abrasions, 1 upper labial abrasion, 1 lower labial abrasion; no mastoid ecchymosis, no hemotypanum , no periorbital ecchymosis CV: S1, S2 RRR Respiratory: CLTA B/L, no wheeze/crackle Abdomen: soft, non-tender (+) bowel sounds Neuro: A&O x3, CN II-XII intact Procedures - Laceration/Wound Repair Anterior Frontal Wound Length: 2.6 to 5.0 cm Wound Explored: clean Wound's Depth, Shape: superficial Anesthesia: 1% Lidocaine Suture Size/Type: 5:0 Number of Sutures: 10 Lower Face Wound's Depth, Shape: flap Anesthesia: 1% Lidocaine Suture Size/Type: 5:0 Number of Sutures: 6 Medical Decision Making - Medical Decision Making 03/17/19 03:41 69 year old male s/p fall w/forehead and chin laceration Will obtain CT head as patient is on A/C Laceration repair Reassess *DC/Admit/Observation/Transfer Diagnosis at time of Disposition: Facial laceration - Discharge Dispostion Disposition: HOME Condition at time of disposition: Fair Decision to Admit order: No - Referrals Referrals: Edu Esteban MD [Primary Care Provider] - - Patient Instructions Printed Discharge Instructions: DI for Laceration Repair Additional Instructions: You can take Motrin (up to 3200 mg daily) and Tylenol (up to 3000 mg daily) every 4-6 hours for your pain. Return to the Emergency Department in 5 days for evaluation of your wound and possible suture removal, return before that time for any new/worsening/ concerning symptoms including fever, severe pain. - Post Discharge Activity
--- NOTE | 2019-03-17 03:37 | PDOC ---
Documentation entered by Esther Joaquin SCRIBE, acting as scribe for Millie Mendieta DO. Millie Mendieta DO: This documentation has been prepared by the Emani carney Adrianna, SCRIBE, under my direction and personally reviewed by me in its entirety. I confirm that the documentation accurately reflects all work, treatment, procedures, and medical decision making performed by me. Attending Attestation - Resident Resident Name: IndiaShaina - ED Attending Attestation I have performed the following: I have examined & evaluated the patient, The case was reviewed & discussed with the resident, I agree w/resident's findings & plan - HPI HPI: The patient is a 69 year old male, with a significant PMH of CAD (s/p 2 stents, currently on ASA and Brilinta), HLD, HTN, and hypothyroidism, who presents to the emergency department today s/p fall. As per patients family at bedside, he was in bed when he rolled off and hit his head on the side table. He presents with a laceration to the medial aspect of the forehead, under the chin, and the medial aspect of the upper lip. Patient reports his last tetanus shot was 3 months ago (routine, recommended by his PCP). Allergies: NKA Past surgical history: 2 stents Social history: Former smoker (quit 3 years ago) PCP: Dr. Esteban 03/17/19 03:34 - Physicial Exam PE: Agree with resident exam. 03/17/19 03:35 - Medical Decision Making 03/17/19 03:36 69-year-old male status post trauma to the face after rolling out of bed Lacerations repaired by the emergency department resident CT scans of the head cervical spine and facial bones to rule out fracture Tetanus is up-to-date Plan for DC home with five-day follow-up for suture removal
[2019-03-17 08:01] VITALS: BP 134/84; PULSE 80
== END 2019-03-17 05:16 | disposition home or self-care (01) ==
LOC: JER 02:25
PROC: 0HQ1XZZ Repair Face Skin, External Approach (ICD-10-PCS; principal; 2019-03-17)
DX: S01.81XA Laceration without foreign body of other part of head, initial encounter (principal); I25.2 Old myocardial infarction; Z95.5 Presence of coronary angioplasty implant and graft; I10 Essential (primary) hypertension; E78.00 Pure hypercholesterolemia, unspecified; E03.9 Hypothyroidism, unspecified; E11.9 Type 2 diabetes mellitus without complications; W06.XXXA Fall from bed, initial encounter; Y93.89 Activity, other specified; Y92.89 Other specified places as the place of occurrence of the external cause
CPT/HCPCS: 12013; 70450-TC; 70486-TC; 72125-TC; 99283-25

== ENCOUNTER 2019-03-22 10:33 | Emergency (ER) | payer OTHER, BC | END 2019-03-22 11:45 | disposition home or self-care (01) | LOC: JERFT 10:33 ==

== ENCOUNTER 2019-03-29 11:06 | Emergency (ER) | payer OTHER, BC ==
[2019-03-29 11:36] VITALS: BP 135/78; PULSE 78; TEMP 98.5; BMI 20.6
--- NOTE | 2019-03-29 12:43 | PDOC ---
Suture Removal/Wound Check HPI - History of Present Illness Chief Complaint: Suture/Staple Removal(Here) Stated Complaint: SUTURES REMOVAL Time Seen by Provider: 03/29/19 12:13 History Source: Yes: Patient Exam Limitations: Yes: No Limitations Treated at: [facility] - Previous ED Treatment Type of procedure performed on last visit: Yes: Laceration Repair Antibiotics Prescribed: No Past History - Travel Traveled outside of the country in the last 30 days: No Close contact w/someone who was outside of country & ill: No - Past Medical History Allergies/Adverse Reactions: Allergies Allergy/AdvReac Type Severity Reaction Status Date / Time No Known Allergies Allergy Verified 03/29/19 11:34 Home Medications: Ambulatory Orders Amlodipine Besylate 5 mg PO DAILY 02/28/17 Atorvastatin Ca [Lipitor] 40 mg PO DAILY 02/28/17 Levothyroxine [Synthroid -] 50 mcg PO DAILY 02/28/17 Losartan Potassium 50 mg PO HS 02/28/17 metFORMIN HCL [Metformin HCl] 500 mg PO BIDAC 02/28/17 Aspirin 81 mg PO AC 04/25/18 Carvedilol [Coreg] 6.25 mg PO BID 04/25/18 Glipizide [Glucotrol] 5 mg PO DAILY #30 tablet 04/25/18 Ticagrelor [Brilinta] 90 mg PO BID 04/25/18 Amlodipine Besylate [Norvasc -] 5 mg PO DAILY tablet 12/02/18 Aspirin [ASA -] 81 mg PO DAILY tab.chew 12/02/18 Atorvastatin Ca [Lipitor] 40 mg PO HS tablet 12/02/18 Carvedilol [Coreg -] 6.25 mg PO BID tablet 12/02/18 Ezetimibe [Zetia -] 10 mg PO DAILY tablet 12/02/18 Glipizide Xl [Glucotrol Xl -] 5 mg PO DAILY@0700 tab.er.24 12/02/18 Levothyroxine [Synthroid -] 50 mcg PO DAILY@0700 tablet 12/02/18 Losartan Potassium [Cozaar -] 100 mg PO DAILY tablet 12/02/18 Mag Hydrox/Al Hydrox/Simeth [Mylanta Oral Suspension -] 30 ml PO Q6H PRN cup Pantoprazole Sodium [Protonix -] 20 mg PO DAILY tablet.ec 12/02/18 Ticagrelor [Brilinta] 60 mg PO BID tablet 12/02/18 metFORMIN HCL [Glucophage -] 500 mg PO BID@0700,1630 tablet 12/02/18 Anemia: No Asthma: No Cancer: No Cardiac Disorders: Yes (DC,STENT x2,CAD.) CVA: No COPD: No CHF: No Dementia: No Diabetes: Yes GI Disorders: No Disorders: No HTN: Yes Hypercholesterolemia: Yes Liver Disease: No Seizures: No Thyroid Disease: Yes (hypothyroid) - Surgical History Abdominal Surgery: No Appendectomy: No Cardiac Surgery: No Cholecystectomy: No Gastric Stapling: No GI Surgery: No Lung Surgery: No Neurologic Surgery: No - Immunization History Td Vaccination: Yes Immunization Up to Date: Yes - Suicide/Smoking/Psychosocial Hx Smoking Status: No Smoking History: Never smoked Years of Tobacco Use: 0 Have you smoked in the past 12 months: No Number of Cigarettes Smoked Daily: 1 Cigars Per Day: 0 'Breaking Loose' booklet given: 02/28/17 Hx Alcohol Use: No Drug/Substance Use Hx: No Substance Use Type: None Hx Substance Use Treatment: No Suture Removal/Wound Check PE - Physical Exam Laceration/Wound Check Symptoms: reports: None Current Severity Level: None Maximum Severity Level: None Location of Laceration/Wound: bilateral: Jaw (scabbed ) *Review of Systems - Review of Systems Able to Perform ROS?: Yes Constitutional: Yes: Symptoms Reported, See HPI HEENTM: Yes: See HPI. No: Symptoms Reported Integumentary: Yes: Symptoms Reported, See HPI, Other (scabbed lesion to chin soaked and eschar/ scab lifted./ No noted sutures remain/ [place]-whiskers appear to be only in area. informed patient that ifsuture material is identified to wound return to emergency department for suture removal if needed) Neurological: Yes: See HPI. No: Symptoms reported All Other Systems: Reviewed and Negative *Physical Exam - Vital Signs Last Vital Signs Temp Pulse Resp BP Pulse Ox 98.5 F 78 18 135/78 97 03/29/19 11:35 03/29/19 11:35 03/29/19 11:35 03/29/19 11:35 03/29/19 11:35 - Physical Exam General Appearance: Yes: Nourished, Appropriately Dressed. No: Apparent Distress HEENT: positive: ROBERTA, Normal ENT Inspection, TMs Normal, Pharynx Normal, Other (deep avulsion laceration poorly approximated, no obvious suture material identified and wound granulating by secondary intention) Neck: positive: Supple. negative: Tender Cardiovascular: positive: Regular Rhythm Gastrointestinal/Abdominal: positive: Soft *DC/Admit/Observation/Transfer Diagnosis at time of Disposition: Visit for suture removal - Discharge Dispostion Disposition: HOME Condition at time of disposition: Stable Decision to Admit order: No - Referrals Referrals: Edu Esteban MD [Primary Care Provider] - - Patient Instructions Printed Discharge Instructions: DI for Suture Removal Additional Instructions: Rest, avoid strenuous activity or exercise until scabbing is completely resolved May use bacitracin ointment until scabbing is gone After may use vitamin E oil, poke hole in vitamin E capsule and use oil from the capsule on wound- may help resolve some of the discoloration of the scar Keep wound out of the sun for at least one year to avoid darkening of scar tissue - Post Discharge Activity
== END 2019-03-29 13:06 | disposition home or self-care (01) ==
LOC: JERFT 11:06
DX: Z48.817 Encounter for surgical aftercare following surgery on the skin and subcutaneous tissue (principal); Z48.02 Encounter for removal of sutures
CPT/HCPCS: 99281-25

== ENCOUNTER 2019-04-10 20:25 | Inpatient (IN) | payer OTHER, BC ==
[2019-04-10] MEDS ORDERED: NITROGLYCERIN SUBLINGUAL 1/150 0.4 MG TAB SL ONE (20:49)
--- NOTE | 2019-04-10 20:54 | PDOC ---
History of Present Illness - General Chief Complaint: Chest Pain Stated Complaint: RT BODY PAIN Time Seen by Provider: 04/10/19 20:36 - History of Present Illness Initial Comments: 04/10/19 22:19 69yo M hx DM, HTN, HLD, CAD s/p angioplasty x2 (2017) on Brilinta and baby aspirin presents c/o chest and back pain. After a [address], pt was changing his clothes when the pain acutely began at 1730 this evening. The pain began in his R chest and spread to his R neck, b/l jaw, and b/l central back. Pain is at rest and exertional, nonpleuritic, burning and pressure type, intermittent between 5/10 and 10/10 in severity, feeling a little better now. Feels like something "stuck" in R neck. This feels similar to 3 months ago when he came in to this ED and had an elevated troponin and he believes it was just acid reflux. His airline counter agent is Dr Esquivel. Denies SOB, VILLARREAL, BROUSSRAD, abdominal pain, palpitations, numbness, tingling, weakness, dizziness, trauma. Pt took his Brilinta and baby aspirin today. Denies FHx of CVD before 65yo, hx of DVT/PE, recent immobilization or surgery, hemoptysis, or malignancy. Past History - Past Medical History Allergies/Adverse Reactions: Allergies Allergy/AdvReac Type Severity Reaction Status Date / Time No Known Allergies Allergy Verified 04/10/19 20:34 Home Medications: Ambulatory Orders Levothyroxine [Synthroid -] 50 mcg PO DAILY 02/28/17 Losartan Potassium 50 mg PO HS 02/28/17 Carvedilol [Coreg] 6.25 mg PO BID 04/25/18 Amlodipine Besylate [Norvasc -] 5 mg PO DAILY tablet 12/02/18 Aspirin [ASA -] 81 mg PO DAILY tab.chew 12/02/18 metFORMIN HCL [Glucophage -] 500 mg PO BID@0700,1630 tablet 12/02/18 Atorvastatin Ca [Lipitor] 80 mg PO HS 04/10/19 Ticagrelor [Brilinta] 90 mg PO BID 04/10/19 Anemia: No Asthma: No Cancer: No Cardiac Disorders: Yes ([place],STENT x2,CAD.) CVA: No COPD: No CHF: No Dementia: No Diabetes: Yes GI Disorders: No Disorders: No HTN: Yes Hypercholesterolemia: Yes Liver Disease: No Seizures: No Thyroid Disease: Yes (hypothyroid) - Surgical History Abdominal Surgery: No Appendectomy: No Cardiac Surgery: Yes (STENT) Cholecystectomy: No Gastric Stapling: No GI Surgery: No Lung Surgery: No Neurologic Surgery: No - Immunization History Td Vaccination: Yes Immunization Up to Date: Yes - Suicide/Smoking/Psychosocial Hx Smoking Status: No Smoking History: Never smoked Years of Tobacco Use: 0 Have you smoked in the past 12 months: No Number of Cigarettes Smoked Daily: 1 Cigars Per Day: 0 'Breaking Loose' booklet given: 02/28/17 Hx Alcohol Use: No Drug/Substance Use Hx: No Substance Use Type: None Hx Substance Use Treatment: No Review of Systems - Review of Systems Comments:: 04/10/19 22:36 Constitutional: Negative for chills, fever, fatigue. HENT: Positive for jaw and R neck pain. Negative for sore throat, rhinorrhea, congestion. Eyes: Negative for visual disturbance. Respiratory: Negative for shortness of breath, cough, and wheezing. Cardiovascular: Positive for chest pain. Negative for chest pain, and leg swelling. Gastrointestinal: Negative for abdominal pain, blood in stool, constipation, diarrhea, nausea, and vomiting. Genitourinary: Negative for dysuria, flank pain, and hematuria. Musculoskeletal: Positive for back pain. Negative for myalgias. Skin: Negative for rash. Neurological: Negative for light-headedness, dizziness, syncope, weakness, numbness and headaches. Psychiatric/Behavioral: Negative for behavioral problems and confusion. *Physical Exam - Vital Signs Last Vital Signs Temp Pulse Resp BP Pulse Ox 97.6 F 84 18 178/82 H 97 04/10/19 20:30 04/10/19 20:30 04/10/19 20:30 04/10/19 20:30 04/10/19 20:30 - Physical Exam Comments: 04/10/19 22:37 Gen: Alert, NAD, comfortable-appearing. HEENT: PERRL, EOMI, MMM, NCAT. No conjunctival pallor. Sclera are non-icteric. Oropharynx is clear. CV: Regular rate and rhythm. No murmurs, rubs, or gallops. PULM: No resp distress. CTAB, no wheezes, rales, or rhonchi. ABD: soft, NT/ND, no rebound tenderness or guarding, no CVA tenderness. BACK: No TTP of c/t/l-spine. No step-offs or deformities. MSK: No bony deformities. 2+ pulses in all extremities. NEURO: AAOx3. PERRL. No gross CN deficits. Strength and sensation grossly intact throughout. EXTREMITIES: No cyanosis. No clubbing. No edema. No calf tenderness. PSYCH: Normal mood and thought pattern. SKIN: Warm and dry. Normal capillary refill. No rashes. No jaundice. Heart Score/ECG Review - ECG Impressions Comment:: 04/10/19 22:39 NSR, 82bpm, normal axis, T wave inversions in aVL/V2 and ST depressions in V5/ V6 (new compared to 12/02/18 ED Treatment Course - LABORATORY CBC & Chemistry Diagram: 04/10/19 20:44 04/10/19 20:44 - Medications Given in the ED: ED Medications Discontinued Medications Generic Name Dose Route Start Last Admin Trade Name Freq PRN Reason Stop Dose Admin Nitroglycerin 0.4 mg 04/10/19 20:49 04/10/19 20:52 Nitrostat - SL 04/10/19 20:50 0.4 mg ONCE ONE Administration Medical Decision Making - Medical Decision Making 69yo M hx DM, HTN, HLD, CAD s/p angioplasty x2 (2017) on Brilinta and baby aspirin presents with acute nonpleuritic R-sided chest, b/l back, jaw, and R neck pain at rest and exertional since 1730 today. High concern for ACS/[place] due to presentation, high pre-trop HEART score, and new EKG changes compared to 2018 EKG - give Nitro, get labs, and hold anticoagulation and calling airline counter agent until r/o dissection. Also concerned for possible aortic dissection due to radiation of pain to back, obtain CTA chest after Cr/BUN. Also consider less likely dx of PNA, effusion (pleural or pericardial), pericarditis, pancreatitis, CHF (no hx), and PE (Wells 0; no further testing indicated at this time) - assess with labs, CXR, CTA chest, and CTAP. Also consider GERD due to hx - if all else negative, try GI cocktail. -Labs: CBC, CMP, Cardiac profile, Coags, Lipase, BNP -EKG -CXR, CTA chest, CTAP -Meds: Nitro 0.4mg, hold anticoagulation until r/o dissection -Consult airline counter agent Dr. esquivel -Dispo: likely admit for ACS r/o pending workup Labs returned: WBC 12.5, coags WNL, Trop <0.02, BNP 38.2, Lipase 265 CXR: no mediastinal widening, no acute findings 04/10/19 22:00 BUN 16.4, Cr 1.4. Transported pt to CT. 04/10/19 22:36 CT in progress. 04/10/19 23:[address] Pain returned. Ordered GI cocktail. 04/11/19 00:53 2nd troponin ordered. 04/11/19 01:18 CTA negative. Give aspirin. Decision to admit. Paged admission team. 04/11/19 01:27 Dr Huertas signed out to Dr Esteban. 04/11/19 02:03 2nd trop 0.37. Paged Dr. Esquivel. 04/11/19 02:23 Spoke with on airline counter agent. Agrees to start anticoagulation and admit. 04/11/19 02:[address] Tovar so aware of pt. *DC/Admit/Observation/Transfer Diagnosis at time of Disposition: ACS (acute coronary syndrome) - Discharge Dispostion Condition at time of disposition: Fair Decision to Admit order: Yes - Referrals - Patient Instructions - Post Discharge Activity
--- NOTE | 2019-04-10 21:01 | PDOC ---
Attending Attestation - Resident Resident Name: MaximoNany - ED Attending Attestation I have performed the following: I have examined & evaluated the patient, The case was reviewed & discussed with the resident, I agree w/resident's findings & plan, Exceptions are as noted - HPI HPI: 04/10/19 20:56 69 M with h/o CAD/stents, HTN, DM, HLD, presenting to ED with chest pain. Pt reports pain radiating from his epigastrum up to his chest and jaw that started this evening at around 5:30PM. 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 He endorses pain that is worse with exertion. Denies SOB. Denies N/V. Pt states that the pain also radiates towards his back but denies tearing quality of pain. Family notes that pt's speech seems off, but pt states that he is clenching his jaw because of the pain. He denies any difficulty speaking or finding his words. Denies any weakness/numbness in any extremity. Family does not notice facial droop or change in mentation. - Physicial Exam PE: 04/10/19 20:58 GENERAL: Awake, alert, and fully oriented, in no acute distress. HEAD: No signs of trauma EYES: PERRLA, EOMI, sclera anicteric, conjunctiva clear ENT: Auricles normal inspection, hearing grossly normal, nares patent, oropharynx clear without exudates. Moist mucosa NECK: Nontender, no stepoffs, Normal ROM, supple, no lymphadenopathy, JVD, or masses LUNGS: Breath sounds equal, clear to auscultation bilaterally. No wheezes, and no crackles HEART: Regular rate and rhythm, normal S1 and S2, no murmurs, rubs or gallops ABDOMEN: Soft, nontender, normoactive bowel sounds. No guarding, no rebound. No masses EXTREMITIES: Normal range of motion, no edema. No clubbing or cyanosis. No cords, erythema, or tenderness NEUROLOGICAL: Cranial nerves II through XII intact. 5/5 strength and sensation in all extremities, Normal speech, normal gait, normal cerebellar function SKIN: Warm, Dry, normal turgor, no rashes or lesions noted. - Critical Care Time Total Critical Care Time: 60 Critical Care Statement: The care of this patient involved high complexity decision making to prevent further life threatening deterioration of the patient 's condition and/or to evaluate & treat vital organ system(s) failure or risk of failure. - Medical Decision Making 04/10/19 21:01 69 M with chest pain, concerning for ACS. Pt with new EKG changes (ST depressions in lateral leads, TWI in V2 and aVL). No STEMI. Pt also complaining of pain radiating towards back and into abdomen. Although pt has equal pulses bilaterally, will evaluate for aortic dissection. - Labs, trop - CTA chest/abdomen/pelvis - SL nitro - Aspirin, anticoagulation when dissection ruled out - Discuss with pt's jewel hole rough opener Dr. Esquivel 04/10/19 21:43 First trop negative Cr 1.4, ok to give IV contrast, pt being hydrated with 1L NS 04/11/19 01:13 CTA negative for dissection/PE 2nd trop ordered 04/11/19 01:[address] Esteban 04/11/19 02:[address] Sierra bundy Will start heparin gtt 04/11/19 02:[address] Shelby, who recommends anticoagulation Heart Score/ECG Review - History History: Highly suspicious - Electrocardiogram EKG: Significant ST-depression - Age Age: >/= 65 - Risk Factors Risk Factors Heart Score: Yes Hx Hypercholesterolemia, Yes Hx Hypertension, Yes Hx Diabetes Based on the list above the patient has:: >/=3 risk factors or Hx atherosclerotic disease - ECG Impressions Comment:: 04/10/19 20:59 NSR, no STEs, ST depressions in lateral leads and TWI in V2, aVL NOT seen on prior EKG
[2019-04-10 21:04] LABS: BASO % 0.9 % (0-2.0); EOS % 1.9 % (0-4.5); HEMATOCRIT 48.3 % (35.4-49); HEMOGLOBIN 15.9 GM/dL (11.7-16.9); LYMPH % 8.5 % (8-40); MCH 30.9 pg (25.7-33.7); MCHC 32.9 g/dl (32.0-35.9); MEAN CELL VOLUME 93.8 fl (80-96); MEAN PLT VOLUME 7.8 fl (7.5-11.1); NEUT % 80.7 % (42.8-82.8); PLATELET COUNT 301 K/MM3 (134-434); RBC 5.14 M/mm3 (4.00-5.60); RDW 13.9 % (11.9-15.9); WHITE BLOOD COUNT 12.5 K/mm3 (4.0-10.0)
[2019-04-10 21:18] LABS: INR 0.83 (0.83-1.09); PROTHROMBIN TIME (PATIENT) 9.8 SEC (9.7-13.0)
[2019-04-10 21:21] LABS: ACTIVATED PTT 33.8 SECONDS (25.2-36.5)
[2019-04-10 21:37] LABS: ALBUMIN 4.7 g/dl (3.4-5.0); ALK PHOS 101 U/L (45-117); ANION GAP 8 MMOL/L (8-16); BLOOD UREA NITROGEN 16.4 mg/dL (7-18); CALCIUM 10.3 mg/dL (8.5-10.1); CHLORIDE 96 mmol/L (98-107); CO2 30 mmol/L (21-32); CREATININE 1.4 mg/dL (0.55-1.3); GLUCOSE,RANDOM 171 mg/dL (74-106); LIPASE 265 U/L (73-393); N-TERMINAL BNP 38.2 pg/ml (5-125); POTASSIUM 4.4 mmol/L (3.5-5.1); SGOT/AST 30 U/L (15-37); SGPT/ALT 44 U/L (13-61); SODIUM 135 mmol/L (136-145); TOT PROT 7.9 g/dl (6.4-8.2)
[2019-04-10] MEDS ORDERED: SODIUM CHLORIDE 1,000 ML IV STA (21:43)
[2019-04-10] MEDS ORDERED: PANTOPRAZOLE SODIUM 40 MG in SODIUM CHLORIDE 100 ML IVPB ONE (23:14)
[2019-04-10] MEDS ORDERED: MAG HYDROX/AL HYDROX/SIMETH 30 ML UNIT-DOSE CUP PO ONE (23:14)
[2019-04-10] MEDS ORDERED: PANTOPRAZOLE SODIUM 40 MG/100 ML BAG IVPB ONE (23:17)
[2019-04-10] MEDS ORDERED: MAG HYDROX/AL HYDROX/SIMETH 30 ML UNIT-DOSE CUP ONE (23:17)
[2019-04-11] MEDS ORDERED: ASPIRIN 325 MG TABLET PO ONE (01:12)
[2019-04-11] MEDS ORDERED: ASPIRIN 325 MG TABLET ONE (01:47)
[2019-04-11] MEDS ORDERED: HEPARIN NA (PORCINE) 5,000 UNITS/ML 1ML VIAL IVPUSH ONE (02:15)
[2019-04-11] MEDS ORDERED: HEPARIN NA (PORCINE) 5,000 UNITS/ML 1ML VIAL IVPUSH PRN ×2 (02:15)
[2019-04-11] MEDS ORDERED: METOPROLOL TARTRATE 50 MG TABLET (FP) PO ONE (02:19)
[2019-04-11] MEDS ORDERED: HEPARIN INFUSION - 25,000 UNITS/500 ML INFUS.BAG IVPB ONE (02:28)
[2019-04-11] MEDS ORDERED: HEPARIN NA (PORCINE) 5,000 UNITS/ML 1ML VIAL ONE (02:28)
[2019-04-11] MEDS ORDERED: METOPROLOL TARTRATE 50 MG TABLET (FP) ONE (02:28)
[2019-04-11] MEDS: HEPARIN SOD,PORK IN 0.45% NACL 25,000 UNITS/500 ML INFUS.BAG IVPB SCH (03:00)
[2019-04-11 03:39] VITALS: BMI 23.8
--- NOTE | 2019-04-11 09:56 | PN ---
Progress Note (short form) - Note Progress Note: Chief Complaint: Event noted, notes reviewed, chest pain atypical for CAD angina pectoris, denies any dyspnea History of Present Illness: Seen and examined on telemetry. Full consult dictated - Current Medication List Current Medications Heparin Sodium (Porcine) (Heparin -) 1,000 unit IVPUSH PRN PRN PRN Reason: Heparin Heparin Sodium (Porcine) (Heparin -) 5,000 unit IVPUSH PRN PRN PRN Reason: Heparin HEPARIN SOD,PORK IN 0.45% NACL (Heparin-1/2ns 25,000 Units/500) 25,000 units in 500 mls @ 20 mls/hr IVPB TITR LESLIE; Protocol Last Admin: 04/11/19 03:00 Dose: 1,000 units/hr, 20 mls/hr Review of Systems Cardiovascular: As noted above Respiratory: denies Cough or Sputum Production Gastrointestinal: denies: Nausea, Vomiting, Diarrhea, Constipation or Abdominal Discomfort Musculoskeletal: No Symptoms Reported - Objective Vital Signs: Last Vital Signs Temp Pulse Resp BP Pulse Ox 98.0 F 89 18 131/88 97 04/11/19 09:31 04/11/19 09:31 04/11/19 09:31 04/11/19 09:31 04/11/19 07:57 Intake & Output 04/08/19 04/09/19 04/10/19 04/11/19 23:59 23:59 23:59 23:59 Intake Total 80 Balance 80 Weight 152 lb 156 lb 6.4 oz Constitutional: No Distress, Calm Neck: Supple Negative JVD No Bruit Respiratory: Clear to A&P Bilaterally Cardiovascular: S1 S2 Regular Rate Rhythm Gastrointestinal: Soft Benign Normal Bowel Sounds Ext: Negative Edema Labs: Troponin, BNP 04/10/19 04/11/19 20:44 00:50 Troponin I < 0.02 0.37 H B-Natriuretic Peptide 38.2 CBC, BMP 04/10/19 20:44 04/10/19 20:44 Hepatic Panel Total Bilirubin 1.0 mg/dL (0.2-1) 04/10/19 20:44 AST 30 U/L (15-37) 04/10/19 20:44 ALT 44 U/L (13-61) 04/10/19 20:44 Alkaline Phosphatase 101 U/L (45-117) 04/10/19 20:44 Albumin 4.7 g/dl (3.4-5.0) 04/10/19 20:44 INR, PTT INR 0.83 (0.83-1.09) 04/10/19 20:44 ASSESSMENT: 1. Chest pain syndrome clinical presentation of which is atypical for CAD angina pectoris, known history of CAD post PCI/stent elevated Troponin I suggestive of demand ischemia with no significant EKG changes 2. Diastolic LV dysfunction with class 0 NYHA classification LV diastolic failure 3. HTN 4. DM 5. Hypercholesterolemia 6. Hypothyroidism PLAN: 1. Continue Coreg 2. Continue Cozaar 3. Continue Norvasc 4. Continue ASA and Brilinta 5. Continue Heparin pending repeat Troponin I level 6. Continue Lipitor 7. Trend Troponin I levels and will decide further intervention based on Troponin I values Discussed in detail with the patient Vianey Dumont M.D.
[2019-04-11] MEDS: amLODIPine BESYLATE 5 MG TABLET (FP) PO SCH (10:53)
[2019-04-11] MEDS: LOSARTAN POTASSIUM 50 MG TABLET (FP) PO SCH (10:53)
[2019-04-11] MEDS: CARVEDILOL 6.25 MG TABLET (FP) PO SCH ×2 (10:53→21:42)
[2019-04-11] MEDS: ASPIRIN COATED 81 MG TABLET.EC PO SCH (10:53)
[2019-04-11] MEDS: TICAGRELOR 60 MG TABLET PO SCH ×2 (11:03→21:42)
--- NOTE | 2019-04-11 11:16 | HP ---
Admitting History and Physical - Primary Care Physician PCP: Edu Esteban - Admission Chief Complaint: Chest Pain History of Present Illness: 69 M with h/o CAD/stents, HTN, T2DM, HLD, yesterday presenting to ED with c/o chest pain. Pt says hewas resting 7/10, diffuse, pressure like chest pain radiates t from his epigastrum up to his chest and jaw that started this evening at around 5:30PM. 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 He endorses pain that is worse with exertion. Denies SOB. Denies N/V. Pt states that the pain also radiates towards his back but denies tearing quality of pain. Family notes that pt's speech seems off, but pt states that he is clenching his jaw because of the pain. He denies any difficulty speaking or finding his words. Denies any weakness/numbness in any extremity. 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 History of Recent Travel: Yes (three months ago to [place]) Home Medications - Allergies Allergies/Adverse Reactions: Allergies Allergy/AdvReac Type Severity Reaction Status Date / Time No Known Allergies Allergy Verified 04/10/19 20:34 - Home Medications Home Medications: Ambulatory Orders Levothyroxine [Synthroid -] 50 mcg PO DAILY 02/28/17 Losartan Potassium 50 mg PO HS 02/28/17 Carvedilol [Coreg] 6.25 mg PO BID 04/25/18 Amlodipine Besylate [Norvasc -] 5 mg PO DAILY tablet 12/02/18 Aspirin [ASA -] 81 mg PO DAILY tab.chew 12/02/18 metFORMIN HCL [Glucophage -] 500 mg PO BID@0700,1630 tablet 12/02/18 Atorvastatin Ca [Lipitor] 80 mg PO HS 04/10/19 Ticagrelor [Brilinta] 90 mg PO BID 04/10/19 Physical Examination Vital Signs: Vital Signs Temperature 98.0 F 04/11/19 09:31 Pulse Rate 89 04/11/19 09:31 Respiratory Rate 18 04/11/19 09:31 Blood Pressure 131/88 04/11/19 09:31 O2 Sat by Pulse Oximetry (%) 97 04/11/19 07:57 Labs: CBC, BMP 04/10/19 20:44 04/10/19 20:44 CBC,CMP WBC 12.5 K/mm3 (4.0-10.0) H 04/10/19 20:44 RBC 5.14 M/mm3 (4.00-5.60) 04/10/19 20:44 Hgb 15.9 GM/dL (11.7-16.9) 04/10/19 20:44 Hct 48.3 % (35.4-49) 04/10/19 20:44 MCV 93.8 fl (80-96) 04/10/19 20:44 MCH 30.9 pg (25.7-33.7) 04/10/19 20:44 MCHC 32.9 g/dl (32.0-35.9) 04/10/19 20:44 RDW 13.9 % (11.9-15.9) 04/10/19 20:44 Plt Count 301 K/MM3 (134-434) 04/10/19 20:44 MPV 7.8 fl (7.5-11.1) 04/10/19 20:44 Absolute Neuts (auto) 10.1 K/mm3 (1.5-8.0) H 04/10/19 20:44 Neutrophils % 80.7 % (42.8-82.8) D 04/10/19 20:44 Lymphocytes % 8.5 % (8-40) D 04/10/19 20:44 Monocytes % 8.0 % (3.8-10.2) 04/10/19 20:44 Eosinophils % 1.9 % (0-4.5) 04/10/19 20:44 Basophils % 0.9 % (0-2.0) 04/10/19 20:44 Nucleated RBC % 0 % (0-0) 04/10/19 20:44 Sodium 135 mmol/L (136-145) L 04/10/19 20:44 Potassium 4.4 mmol/L (3.5-5.1) 04/10/19 20:44 Chloride 96 mmol/L (98-107) L 04/10/19 20:44 Carbon Dioxide 30 mmol/L (21-32) 04/10/19 20:44 Anion Gap 8 MMOL/L (8-16) 04/10/19 20:44 BUN 16.4 mg/dL (7-18) 04/10/19 20:44 Creatinine 1.4 mg/dL (0.55-1.3) H 04/10/19 20:44 Est GFR (CKD-EPI)AfAm 59.83 04/10/19 20:44 Est GFR (CKD-EPI)NonAf 51.62 04/10/19 20:44 Random Glucose 171 mg/dL (74-106) H 04/10/19 20:44 Calcium 10.3 mg/dL (8.5-10.1) H 04/10/19 20:44 Total Bilirubin 1.0 mg/dL (0.2-1) 04/10/19 20:44 AST 30 U/L (15-37) 04/10/19 20:44 ALT 44 U/L (13-61) 04/10/19 20:44 Alkaline Phosphatase 101 U/L (45-117) 04/10/19 20:44 Creatine Kinase 105 U/L (26-308) 04/11/19 00:50 Troponin I 3.31 ng/ml (0.00-0.05) H* 04/11/19 09:03 B-Natriuretic Peptide 38.2 pg/ml (5-125) 04/10/19 20:44 Total Protein 7.9 g/dl (6.4-8.2) 04/10/19 20:44 Albumin 4.7 g/dl (3.4-5.0) 04/10/19 20:44 Lipase 265 U/L (73-393) 04/10/19 20:44 Active Medications Amlodipine Besylate (Norvasc -) 5 mg PO DAILY [facility] Last Admin: 04/11/19 10:53 Dose: 5 mg Aspirin (Ecotrin -) 81 mg PO DAILY [facility] Last Admin: 04/11/19 10:53 Dose: 81 mg Atorvastatin Calcium (Lipitor -) 80 mg PO HS [facility] Carvedilol (Coreg -) 6.25 mg PO BID [facility] Last Admin: 04/11/19 10:53 Dose: 6.25 mg Heparin Sodium (Porcine) (Heparin -) 1,000 unit IVPUSH PRN PRN PRN Reason: Heparin Heparin Sodium (Porcine) (Heparin -) 5,000 unit IVPUSH PRN PRN PRN Reason: Heparin HEPARIN SOD,PORK IN 0.45% NACL (Heparin-1/2ns 25,000 Units/500) 25,000 units in 500 mls @ 20 mls/hr IVPB TITR LESLIE; Protocol Last Admin: 04/11/19 03:00 Dose: 1,000 units/hr, 20 mls/hr Levothyroxine Sodium (Synthroid -) 50 mcg PO DAILY@0700 [facility] Losartan Potassium (Cozaar -) 50 mg PO DAILY [facility] Last Admin: 04/11/19 10:53 Dose: 50 mg Metformin HCl (Glucophage -) 500 mg PO BID@0700,1630 [facility] Ticagrelor (Brilinta) 60 mg PO BID [facility] Last Admin: 04/11/19 11:03 Dose: 60 mg Imaging - Results Chest X-ray: Report Reviewed (Normal) EKG: Report Reviewed (No acute St T chnages) Problem List - Problems (1) ACS (acute coronary syndrome) Assessment/Plan: known case of CAD s/p PCI present with typical chest pain 2nd CE rising no acute ST T chnages evaluted bty cardiology on Heparin infusionm, B Blockers and sttain F/U serial CE, ECHO possible transfer to [facility] for cath. Code(s): I24.9 - ACUTE ISCHEMIC HEART DISEASE, UNSPECIFIED (2) Coronary artery disease Assessment/Plan: known case of CAD s/ PCI admitted with typical chest pain cont treatment for ACS Code(s): I25.10 - ATHSCL HEART DISEASE OF [place] CORONARY ARTERY W/O ANG PCTRS Qualifiers: Coronary Disease-Associated Artery/Lesion type: [place] artery [place] vs. transplanted heart: [place] heart Associated angina: without angina Qualified Code(s): I25.10 - Atherosclerotic heart disease of [place] coronary artery without angina pectoris (3) Hyperlipidemia associated with type 2 diabetes mellitus Assessment/Plan: cont sttain F/U Lipid panel, TSH Code(s): E11.69 - TYPE 2 DIABETES MELLITUS WITH OTHER SPECIFIED COMPLICATION; E78.5 - HYPERLIPIDEMIA, UNSPECIFIED (4) Hypothyroidism Assessment/Plan: cont Levothyroxine Code(s): E03.9 - HYPOTHYROIDISM, UNSPECIFIED Qualifiers: Hypothyroidism type: unspecified Qualified Code(s): E03.9 - Hypothyroidism , unspecified (5) Type 2 diabetes mellitus Assessment/Plan: hold netformin F/U accucheck correction dose insulin coverage Code(s): E11.9 - TYPE 2 DIABETES MELLITUS WITHOUT COMPLICATIONS Qualifiers: Diabetes mellitus 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
[2019-04-11] MEDS: INSULIN SLIDING SCALE (NOVOLOG) 1 VIAL SQ SCH ×2 (11:47→17:27)
[2019-04-11] MEDS ORDERED: INSULIN (NOVOLOG) ASPART 100 UNITS/ML 10ML VIAL ONE (11:47)
--- NOTE | 2019-04-11 12:29 | CONS ---
DATE OF CONSULTATION: 04/11/2019 CONSULTATION REQUESTED BY: Edu Esteban MD CHIEF COMPLAINT: Chest pain, cardiovascular evaluation. HISTORY OF PRESENT ILLNESS: A 69-year-old man of [place] descent with known history of coronary artery disease status post percutaneous coronary intervention and stenting, angina pectoris, diastolic left ventricular dysfunction with clinical class 0 [place] Heart Association classification left ventricular failure, hypertensive cardiovascular disease, noninsulin dependent diabetes mellitus, hypercholesterolemia, hypothyroidism, who was in his usual state of health until presenting to [facility] emergency room with sudden onset of retrosternal right-sided and upper back discomfort upon his return from a long drive. Symptoms persisted and on occasion they were exacerbated with certain movements. Upon evaluation in the emergency room, the patient was noted to have nonspecific T-wave abnormality on electrocardiogram. CT scan of the chest was performed to exclude possible aortic dissection, although unlikely, and it was noted to be negative. Symptoms eventually subsided spontaneously early this a.m. The patient reported exacerbation with positioning on CT scan table. The patient had not reported any recent chest discomfort. The patient denies any dyspnea, orthopnea, paroxysmal nocturnal dyspnea or peripheral edema. The patient denies any palpitations, dizziness, lightheadedness or syncope. The patient denied any fatigue or tiredness. The patient exercises regularly without any discomfort or limitation. The patient was noted to have elevated troponin I level on repeat blood test. PAST MEDICAL HISTORY: Coronary artery disease status post percutaneous coronary intervention, stenting, angina pectoris, diastolic left dysfunction with clinical class 0 [place] Heart Association classification left ventricular failure, hypertensive cardiovascular disease, noninsulin dependent diabetes mellitus, hypercholesterolemia, hypothyroidism. PAST SURGICAL HISTORY: None. SOCIAL HISTORY: Denied smoking. FAMILY HISTORY: Positive for coronary artery disease. ALLERGIES: None reported. MEDICAL THERAPY AT HOME: Included Lipitor 80 mg once a day, Coreg 6.25 mg twice a day, levothyroxine 50 once a day, Brilinta 60 mg twice a day, Norvasc 5 mg once a day, Ecotrin 81 mg once a day, metformin 500 mg twice daily. REVIEW OF SYSTEMS: Head and Neck: Denies headache, photophobia, blurring of vision. Respiratory: No cough or sputum production. Cardiovascular: As noted above. Gastrointestinal: Denies nausea, vomiting, diarrhea, abdominal discomfort. Genitourinary: No symptoms reported. PHYSICAL EXAMINATION: Vital Signs: Blood pressure is 131/88 mmHg. Pulse rate is 89 beats per minute. Head and Neck: Pupils equal and reacting to light and accommodation. Extraocular movements are intact. Anicteric sclerae. Negative JVD. No bruit appreciated.Chest: Clear to auscultation and percussion. Cardiovascular: S1, 2 are gular. No murmurs, clicks or gallops. Abdomen: Soft, benign, normoactive bowel sounds. Extremities: Negative edema, intact distal pulses, no calf tenderness. STUDIES: Electrocardiogram reveals sinus rhythm with nonspecific T-wave abnormality. Troponin I initially was less than 0.02; repeat is 0.37; third is pending. CBC revealed white cell count of 12.5, hemoglobin 15.9, platelet count 301. Basic metabolic panel revealed a sodium of 135, potassium 4.4, BUN 16.4, creatinine 1.4, glucose 171 with normal liver profile. INR 0.83. ASSESSMENT: 1. Chest pain syndrome, clinical presentation of which is atypical. Coronary artery disease, angina pectoris in a patient with known history of coronary artery disease post percutaneous coronary intervention and stenting. Elevated troponin I level suggestive of demand ischemia with no significant electrocardiographic changes. 2. Diastolic left ventricular dysfunction with class 0 [place] Heart Association classification left ventricular failure. 3. Hypertensive cardiovascular disease. 4. Diabetes mellitus. 5. Hypercholesterolemia. 6. Hypothyroidism. PLAN: 1. Continuation of carvedilol therapy. 2. Continuation of cholesterol therapy. 3. Continuation of Norvasc therapy. 4. Continuation of aspirin and Brilinta therapies. 6. Continuation of heparin pending repeat troponin I level. 7. Continuation of Lipitor. 8. Trending troponin levels and will decide further intervention based on troponin I values. Discussed in detail with the patient. Thank you for the referral. BLAIRE LEE M.D. [id number]
--- NOTE | 2019-04-11 13:00 | EKG ---
Test Reason : Blood Pressure : / mmHG Vent. Rate : 083 BPM Atrial Rate : 083 BPM P-R Int : 158 ms QRS Dur : 076 ms QT Int : 350 ms P-R-T Axes : 075 046 062 degrees QTc Int : 411 ms NORMAL SINUS RHYTHM LEFT ATRIAL ENLARGEMENT OTHERWISE NORMAL ECG Confirmed by MD MALLORY, WILFRID ([id number]) on 04/11/2019 12:59:53 PM Referred By: Confirmed By:WILFRID TEJADA MD
--- NOTE | 2019-04-11 13:04 | EKG ---
Test Reason : Blood Pressure : / mmHG Vent. Rate : 086 BPM Atrial Rate : 086 BPM P-R Int : 150 ms QRS Dur : 080 ms QT Int : 368 ms P-R-T Axes : 072 040 063 degrees QTc Int : 440 ms NORMAL SINUS RHYTHM LEFT ATRIAL ENLARGEMENT OTHERWISE NORMAL ECG Confirmed by MD MALLORY, WILFRID ([id number]) on 04/11/2019 1:03:46 PM Referred By: DAENN Confirmed By:WILFRID TEJADA MD
--- NOTE | 2019-04-11 13:07 | EKG ---
Test Reason : Blood Pressure : / mmHG Vent. Rate : 082 BPM Atrial Rate : 082 BPM P-R Int : 148 ms QRS Dur : 074 ms QT Int : 370 ms P-R-T Axes : 072 050 085 degrees QTc Int : 432 ms NORMAL SINUS RHYTHM LEFT ATRIAL ENLARGEMENT NONSPECIFIC ST AND T WAVE ABNORMALITY ABNORMAL ECG WHEN COMPARED WITH ECG OF 02-DEC-2018 10:44, T WAVE INVERSION NOW EVIDENT IN ANTERIOR LEADS Confirmed by MD MALLORY, WILFRID ([id number]) on 04/11/2019 1:06:52 PM Referred By: Confirmed By:WILFRID TEJADA MD
[2019-04-11] MEDS ORDERED: metFORMIN HCL 500 MG TABLET (FP) PO SCH (16:30)
[2019-04-11] MEDS: ATORVASTATIN CA 80 MG TABLET (FP) PO SCH (21:42)
[2019-04-12] MEDS: LEVOTHYROXINE NA 50 MCG TABLET (FP) PO SCH (06:39)
[2019-04-12] MEDS: INSULIN SLIDING SCALE (NOVOLOG) 1 VIAL SQ SCH ×3 (06:39→17:41)
[2019-04-12 07:35] LABS: BASO % 1.8 % (0-2.0); HEMOGLOBIN 13.8 GM/dL (11.7-16.9); LYMPH % 26.6 % (8-40); MCHC 33.6 g/dl (32.0-35.9); MEAN CELL VOLUME 95.1 fl (80-96); MEAN PLT VOLUME 8.3 fl (7.5-11.1); MONO % 8.9 % (3.8-10.2); NEUT % 57.7 % (42.8-82.8); PLATELET COUNT 272 K/MM3 (134-434); RBC 4.31 M/mm3 (4.00-5.60); WHITE BLOOD COUNT 6.2 K/mm3 (4.0-10.0)
--- NOTE | 2019-04-12 09:12 | PN ---
Progress Note, Physician History of Present Illness: Epigastric->chest, back and neck pressure while driving has resolved, denies dyspnea. Trops have peaked. Last saw Dr. Esquivel 01/20/2019. - Current Medication List Current Medications: Active Medications Amlodipine Besylate (Norvasc -) 5 mg PO DAILY [facility] Last Admin: 04/11/19 10:53 Dose: 5 mg Aspirin (Ecotrin -) 81 mg PO DAILY [facility] Last Admin: 04/11/19 10:53 Dose: 81 mg Atorvastatin Calcium (Lipitor -) 80 mg PO HS [facility] Last Admin: 04/11/19 21:42 Dose: 80 mg Carvedilol (Coreg -) 6.25 mg PO BID [facility] Last Admin: 04/11/19 21:42 Dose: 6.25 mg Heparin Sodium (Porcine) (Heparin -) 1,000 unit IVPUSH PRN PRN PRN Reason: Heparin Heparin Sodium (Porcine) (Heparin -) 5,000 unit IVPUSH PRN PRN PRN Reason: Heparin HEPARIN SOD,PORK IN 0.45% NACL (Heparin-1/2ns 25,000 Units/500) 25,000 units in 500 mls @ 20 mls/hr IVPB TITR [facility]; Protocol Last Titration: 04/12/19 00:30 Dose: 700 units/hr, 14 mls/hr Insulin Aspart (Novolog Vial Sliding Scale -) 1 vial SQ TIDAC [facility]; Protocol Last Admin: 04/12/19 06:39 Dose: 2 units Levothyroxine Sodium (Synthroid -) 50 mcg PO DAILY@0700 [facility] Last Admin: 04/12/19 06:39 Dose: 50 mcg Losartan Potassium (Cozaar -) 50 mg PO DAILY [facility] Last Admin: 04/11/19 10:53 Dose: 50 mg Ticagrelor (Brilinta) 60 mg PO BID [facility] Last Admin: 04/11/19 21:42 Dose: 60 mg - Objective Vital Signs: Vital Signs Temperature 97.9 F 04/12/19 06:30 Pulse Rate 78 04/12/19 06:30 Respiratory Rate 18 04/12/19 06:30 Blood Pressure 134/85 04/12/19 06:30 O2 Sat by Pulse Oximetry (%) 97 04/11/19 21:00 Constitutional: Yes: No Distress, Calm, Thin Neck: Yes: Supple Cardiovascular: Yes: Regular Rate and Rhythm Respiratory: Yes: Regular, CTA Bilaterally Gastrointestinal: Yes: Normal Bowel Sounds, Soft Edema: No Labs: CBC, BMP 04/12/19 05:45 04/10/19 20:44 INR, PTT INR 0.83 (0.83-1.09) 04/10/19 20:44 Problem List - Problems (1) ACS (acute coronary syndrome) Code(s): I24.9 - ACUTE ISCHEMIC HEART DISEASE, UNSPECIFIED (2) Coronary artery disease Code(s): I25.10 - ATHSCL HEART DISEASE OF [place] CORONARY ARTERY W/O ANG PCTRS Qualifiers: Coronary Disease-Associated Artery/Lesion type: [place] artery [place] vs. transplanted heart: [place] heart Associated angina: without angina Qualified Code(s): I25.10 - Atherosclerotic heart disease of [place] coronary artery without angina pectoris (3) Hyperglycemia Code(s): R73.9 - HYPERGLYCEMIA, UNSPECIFIED (4) Hyperlipidemia associated with type 2 diabetes mellitus Code(s): E11.69 - TYPE 2 DIABETES MELLITUS WITH OTHER SPECIFIED COMPLICATION; E78.5 - HYPERLIPIDEMIA, UNSPECIFIED (5) Hypothyroidism Code(s): E03.9 - HYPOTHYROIDISM, UNSPECIFIED Qualifiers: Hypothyroidism type: unspecified Qualified Code(s): E03.9 - Hypothyroidism , unspecified (6) S/P insertion of non-drug eluting coronary artery stent Code(s): Z95.5 - PRESENCE OF CORONARY ANGIOPLASTY IMPLANT AND GRAFT (7) Type 2 diabetes mellitus Code(s): E11.9 - TYPE 2 DIABETES MELLITUS WITHOUT COMPLICATIONS Qualifiers: Diabetes mellitus termination clerk insulin use: without termination clerk use Diabetes mellitus complication status: with kidney complications Diabetes mellitus complication detail: with chronic kidney disease Chronic kidney disease stage : stage 2 (mild) Qualified Code(s): E11.22 - Type 2 diabetes mellitus with diabetic chronic kidney disease; N18.2 - Chronic kidney disease, stage 2 (mild) Assessment/Plan 03/04/2017 85% mid LAD, 90% OM1, 60% RI, nonobstructive RCA and LM, normal LVEF 60% s/p NICA mid LAD and OM1 05/18/2018 Normal LV systolic function mild MR, TR 05/27/2018 Nuclear MPI: Small inferior mild ischemia, LVEF 68% 1. CAD h/o NICA OM1 and mid LAD with elevated Troponin I c/w [place]/NSTEMI 2. Diastolic LV dysfunction with class 0 NYHA classification LV diastolic failure 3. HTN 4. DM 5. Hypercholesterolemia 6. Hypothyroidism PLAN: 1. Increase Coreg 12.5 bid 2. Continue Cozaar 50 qd 3. Continue Norvasc 5 qd 4. Continue ASA 81 qd and increase Brilinta 90 bid 5. Continue Heparin gtt for one more day 6. Continue Lipitor 80 qhs 7. Trops are downtrending, f/u echo results 8. Patient agrees to proceed with [facility] to assess severity of CAD, ISR vs disease progression, will arrange for transfer tomorrow Discussed in detail with the patient and family
[2019-04-12] MEDS ORDERED: PT OWN MED DRAWER 7, Y5N ONE ×4 (09:35→22:33)
[2019-04-12] MEDS: HEPARIN SOD,PORK IN 0.45% NACL 25,000 UNITS/500 ML INFUS.BAG IVPB SCH (09:41)
[2019-04-12] MEDS: TICAGRELOR 60 MG TABLET PO SCH (09:49)
[2019-04-12] MEDS: ASPIRIN COATED 81 MG TABLET.EC PO SCH (09:50)
[2019-04-12] MEDS: amLODIPine BESYLATE 5 MG TABLET (FP) PO SCH (09:50)
[2019-04-12] MEDS: CARVEDILOL 6.25 MG TABLET (FP) PO SCH (09:50)
[2019-04-12] MEDS: LOSARTAN POTASSIUM 50 MG TABLET (FP) PO SCH (09:50)
[2019-04-12] MEDS ORDERED: CARVEDILOL 6.25 MG TABLET (FP) PO ONE (10:40)
[2019-04-12] MEDS ORDERED: TICAGRELOR 90 MG TABLET PO SCH (10:41)
[2019-04-12] MEDS ORDERED: INSULIN (NOVOLOG) ASPART 100 UNITS/ML 10ML VIAL ONE (12:02)
--- NOTE | 2019-04-12 12:46 | ECHO ---
Name: KAR ANDERSONBIL Exam:Adult Echocardiogram Study Date: 04/12/2019 11:44 AM Age: 69 yrs Reason For Study: NSTEMI Height: 68 in Weight: 156 lb BSA: 1.8 m2 MMode/2D Measurements & Calculations IVSd: 0.79 cm Ao root diam: 2.6 cm LVIDd: 4.5 cm LVIDs: 2.9 cm LVPWd: 0.79 cm EDV(Teich): 92.2 ml LVOT diam: 2.0 cm ESV(Teich): 30.9 ml Doppler Measurements & Calculations MV E max zuhair: 36.0 cm/sec Ao V2 max: 120.8 cm/sec MV A max zuhair: 56.8 cm/sec Ao max P.8 mmHg MV E/A: 0.63 Ao V2 mean: 97.7 cm/sec Ao mean P.0 mmHg Ao V2 VTI: 25.1 cm NEW(I,D): 2.4 cm2 NEW(V,D): 2.3 cm2 LV V1 max P.9 mmHg MR max zuhair: 385.3 cm/sec LV V1 mean P.3 mmHg MR max P.4 mmHg LV V1 max: 85.2 cm/sec LV V1 mean: 52.2 cm/sec LV V1 VTI: 18.4 cm SV(LVOT): 59.6 ml Med Peak E' Zuhair: 3.4 cm/sec Med E/e': 10.6 Lat Peak E' Zuhair: 7.8 cm/sec Lat E/e': 4.6 Procedure The study was technically difficult with many images being suboptimal in quality. The study was techn ically limited with all images being suboptimal in quality. Left Ventricle The left ventricular size, thickness and function are normal. Ejection Fraction = 60-65%. Grade I claudia stolic dysfunction, (abnormal relaxation pattern). Right Ventricle The right ventricle is normal in size and function. Mitral Valve The mitral valve is normal in structure and function. There is mild to moderate mitral regurgitation. Tricuspid Valve The tricuspid valve is not well visualized, but is grossly normal. There is Trace to mild tricuspid regurgitation. There was insufficient TR detected to calculate RV systolic pressure. Aortic Valve The aortic valve opens well. The aortic valve is trileaflet. No aortic regurgitation is present. Pulmonic Valve The pulmonic valve is not well visualized. Great Vessels The aortic root is normal size. Interpretation Summary Compared to the prior echo report on 05/18/2018, there is no significant change. The left ventricular size, thickness and function are normal The right ventricle is normal in size and function. There is Trace to mild tricuspid regurgitation. Ejection Fraction = 60-65%. There is mild to moderate mitral regurgitation. Compared to the prior echo report on 05/18/2018, there is no significant change. Ruben Heller MD 04/12/2019 12:45 PM
--- NOTE | 2019-04-12 18:14 | PN ---
Progress Note, Physician Chief Complaint: No chest pain. History of Present Illness: Patient diagnosed to have coronary artery disease S/P stent insertion . Admitted with chest pain now troponin positive .today-3.7 being folowed by cardiology Dr Christensen - Current Medication List Current Medications: Active Medications Amlodipine Besylate (Norvasc -) 5 mg PO DAILY [facility] Last Admin: 04/12/19 09:50 Dose: 5 mg Aspirin (Ecotrin -) 81 mg PO DAILY [facility] Last Admin: 04/12/19 09:50 Dose: 81 mg Atorvastatin Calcium (Lipitor -) 80 mg PO HS [facility] Last Admin: 04/11/19 21:42 Dose: 80 mg Carvedilol (Coreg -) 12.5 mg PO BID [facility] Heparin Sodium (Porcine) (Heparin -) 1,000 unit IVPUSH PRN PRN PRN Reason: Heparin Heparin Sodium (Porcine) (Heparin -) 5,000 unit IVPUSH PRN PRN PRN Reason: Heparin HEPARIN SOD,PORK IN 0.45% NACL (Heparin-1/2ns 25,000 Units/500) 25,000 units in 500 mls @ 20 mls/hr IVPB TITR [facility]; Protocol Last Admin: 04/12/19 09:41 Dose: 650 units/hr, 13 mls/hr Insulin Aspart (Novolog Vial Sliding Scale -) 1 vial SQ TIDAC [facility]; Protocol Last Admin: 04/12/19 12:12 Dose: 4 units Levothyroxine Sodium (Synthroid -) 50 mcg PO DAILY@0700 [facility] Last Admin: 04/12/19 06:39 Dose: 50 mcg Losartan Potassium (Cozaar -) 50 mg PO DAILY [facility] Last Admin: 04/12/19 09:50 Dose: 50 mg Ticagrelor (Brilinta -) 90 mg PO BID [facility] - Objective Vital Signs: Vital Signs Temperature 98.4 F 04/12/19 16:25 Pulse Rate 95 H 04/12/19 16:25 Respiratory Rate 18 04/12/19 16:25 Blood Pressure 128/78 04/12/19 16:25 O2 Sat by Pulse Oximetry (%) 98 04/12/19 09:00 Constitutional: Yes: No Distress Eyes: Yes: WNL HENT: Yes: WNL Neck: Yes: WNL Cardiovascular: Yes: WNL Respiratory: Yes: WNL Gastrointestinal: Yes: WNL ...Rectal Exam: Yes: Deferred Genitourinary: Yes: WNL Musculoskeletal: Yes: WNL Edema: No Neurological: Yes: Alert ...Motor Strength: WNL Psychiatric: Yes: Alert Labs: CBC, BMP 04/12/19 05:45 04/10/19 20:44 INR, PTT INR 0.83 (0.83-1.09) 04/10/19 20:44 Assessment/Plan Will discuss with cardiology
[2019-04-12] MEDS ORDERED: CARVEDILOL 12.5 MG TABLET (FP) PO SCH (22:00)
[2019-04-12] MEDS: ATORVASTATIN CA 80 MG TABLET (FP) PO SCH (22:40)
[2019-04-13 02:15] VITALS: TEMP 98
--- NOTE | 2019-04-13 06:27 | PN ---
Progress Note (short form) - Note Progress Note: Chief Complaint: Event noted, notes reviewed, denies any recurrent chest pain, denies any dyspnea, for transfer to [facility] for [facility]& coronary angiography this AM History of Present Illness: Seen and examined on telemetry. Event noted, notes reviewed, denies any recurrent chest pain, denies any dyspnea, for transfer to [facility] for [facility]& coronary angiography this AM - Current Medication List Current Medications Amlodipine Besylate (Norvasc -) 5 mg PO DAILY [facility] Last Admin: 04/12/19 09:50 Dose: 5 mg Aspirin (Ecotrin -) 81 mg PO DAILY [facility] Last Admin: 04/12/19 09:50 Dose: 81 mg Atorvastatin Calcium (Lipitor -) 80 mg PO HS [facility] Last Admin: 04/12/19 22:40 Dose: 80 mg Carvedilol (Coreg -) 12.5 mg PO BID [facility] Last Admin: 04/12/19 22:41 Dose: 12.5 mg Heparin Sodium (Porcine) (Heparin -) 1,000 unit IVPUSH PRN PRN PRN Reason: Heparin Heparin Sodium (Porcine) (Heparin -) 5,000 unit IVPUSH PRN PRN PRN Reason: Heparin HEPARIN SOD,PORK IN 0.45% NACL (Heparin-1/2ns 25,000 Units/500) 25,000 units in 500 mls @ 20 mls/hr IVPB TITR [facility]; Protocol Last Admin: 04/12/19 09:41 Dose: 650 units/hr, 13 mls/hr Insulin Aspart (Novolog Vial Sliding Scale -) 1 vial SQ TIDAC [facility]; Protocol Last Admin: 04/12/19 17:41 Dose: 2 units Levothyroxine Sodium (Synthroid -) 50 mcg PO DAILY@0700 [facility] Last Admin: 04/12/19 06:39 Dose: 50 mcg Losartan Potassium (Cozaar -) 50 mg PO DAILY [facility] Last Admin: 04/12/19 09:50 Dose: 50 mg Ticagrelor (Brilinta -) 90 mg PO BID [facility] Last Admin: 04/12/19 22:41 Dose: 90 mg Review of Systems Cardiovascular: As noted above Respiratory: denies Cough or Sputum Production Gastrointestinal: denies: Nausea, Vomiting, Diarrhea, Constipation or Abdominal Discomfort Musculoskeletal: No Symptoms Reported - Objective Vital Signs: Last Vital Signs Temp Pulse Resp BP Pulse Ox 98 F 76 18 114/73 97 04/13/19 02:00 04/13/19 02:00 04/13/19 02:00 04/13/19 02:00 04/12/19 21:00 Intake & Output 04/10/19 04/11/19 04/12/19 04/13/19 23:59 23:59 23:59 23:59 Intake Total 978 104 Output Total 900 1050 Balance 78 -946 Weight 152 lb 156 lb 6.4 oz Constitutional: No Distress, Calm Neck: Supple Negative JVD No Bruit Respiratory: Clear to A&P Bilaterally Cardiovascular: S1 S2 Regular Rate Rhythm Gastrointestinal: Soft Benign Normal Bowel Sounds Ext: Negative Edema Labs: Troponin, BNP 04/12/19 05:45 Troponin I 3.78 H* CBC, BMP 04/12/19 05:45 04/10/19 20:44 Hepatic Panel Total Bilirubin 1.0 mg/dL (0.2-1) 04/10/19 20:44 AST 30 U/L (15-37) 04/10/19 20:44 ALT 44 U/L (13-61) 04/10/19 20:44 Alkaline Phosphatase 101 U/L (45-117) 04/10/19 20:44 Albumin 4.7 g/dl (3.4-5.0) 04/10/19 20:44 INR, PTT INR 0.83 (0.83-1.09) 04/10/19 20:44 ASSESSMENT: 1. CAD post PCI/stent elevated Troponin I with no significant EKG changes consistent with NSTEMI/ACS angina pectoris for [facility]& coronary angiography this AM 2. Diastolic LV dysfunction with class 0 NYHA classification LV diastolic failure 3. HTN 4. DM 5. Hypercholesterolemia 6. Hypothyroidism PLAN: 1. Continue Coreg 2. Continue Cozaar 3. Continue Norvasc 4. Continue ASA and Brilinta 5. Continue Heparin pending procedure this AM 6. Continue Lipitor 7. As outlined above for transfer to [facility] for [facility]& coronary angiography this AM, discussed in detail with the patient Vianey Dumont M.D.
[2019-04-13] MEDS: INSULIN SLIDING SCALE (NOVOLOG) 1 VIAL SQ SCH (06:33)
[2019-04-13] MEDS: HEPARIN SOD,PORK IN 0.45% NACL 25,000 UNITS/500 ML INFUS.BAG IVPB SCH (06:33)
[2019-04-13 06:37] VITALS: BP 135/84; PULSE 78
[2019-04-13] MEDS: LEVOTHYROXINE NA 50 MCG TABLET (FP) PO SCH (06:53)
--- NOTE | 2019-04-14 10:31 | PN ---
Progress Note (short form) - Note Progress Note: C performed. 90-95% distal OM lesion treated with PTCA, implant Synergy 2.75x24 mm NICA post-dilated 3.0x20 mm Quantum at 14 MIKAEL. New stent overlaps distal edge of previously placed OM stent which is widely open, mid LAD stent is also widely open, luminal irregularities of distal RCA, hyperdynamic LVEF 70% , normal LVEDP 15 mmHg, TR band applied to right radial access site, no complications, stable for routine post PCI care, secondary prevention of CVD and is a candidate for cardiac rehab. Patient to f/u with Dr. Esquivel in office . Problem List - Problems (1) ACS (acute coronary syndrome) Code(s): I24.9 - ACUTE ISCHEMIC HEART DISEASE, UNSPECIFIED (2) Coronary artery disease Code(s): I25.10 - ATHSCL HEART DISEASE OF [place] CORONARY ARTERY W/O ANG PCTRS Qualifiers: Coronary Disease-Associated Artery/Lesion type: [place] artery [place] vs. transplanted heart: [place] heart Associated angina: without angina Qualified Code(s): I25.10 - Atherosclerotic heart disease of [place] coronary artery without angina pectoris (3) Hyperglycemia Code(s): R73.9 - HYPERGLYCEMIA, UNSPECIFIED (4) Hyperlipidemia associated with type 2 diabetes mellitus Code(s): E11.69 - TYPE 2 DIABETES MELLITUS WITH OTHER SPECIFIED COMPLICATION; E78.5 - HYPERLIPIDEMIA, UNSPECIFIED (5) Hypothyroidism Code(s): E03.9 - HYPOTHYROIDISM, UNSPECIFIED Qualifiers: Hypothyroidism type: unspecified Qualified Code(s): E03.9 - Hypothyroidism , unspecified (6) S/P insertion of non-drug eluting coronary artery stent Code(s): Z95.5 - PRESENCE OF CORONARY ANGIOPLASTY IMPLANT AND GRAFT (7) Type 2 diabetes mellitus Code(s): E11.9 - TYPE 2 DIABETES MELLITUS WITHOUT COMPLICATIONS Qualifiers: Diabetes mellitus silver solution mixer insulin use: without silver solution mixer use Diabetes mellitus complication status: with kidney complications Diabetes mellitus complication detail: with chronic kidney disease Chronic kidney disease stage : stage 2 (mild) Qualified Code(s): E11.22 - Type 2 diabetes mellitus with diabetic chronic kidney disease; N18.2 - Chronic kidney disease, stage 2 (mild)
== END 2019-04-13 08:52 | disposition short-term general hospital (02) | DRG 281 ==
LOC: JER 20:25 → JERBED 04-11 01:20 → J4W 04-11 03:02 → OBSVTOIN 04-12 10:36
PROVIDERS: ADMIT Internal Medicine; ATTEND Internal Medicine
DX: I21.4 Non-ST elevation (NSTEMI) myocardial infarction (principal); I50.30 Unspecified diastolic (congestive) heart failure; E11.9 Type 2 diabetes mellitus without complications; E78.5 Hyperlipidemia, unspecified; I25.10 Atherosclerotic heart disease of native coronary artery without angina pectoris; Z79.84 Long term (current) use of oral hypoglycemic drugs; E03.9 Hypothyroidism, unspecified; Z95.5 Presence of coronary angioplasty implant and graft; I11.0 Hypertensive heart disease with heart failure
CPT/HCPCS: 36415; 71045-TC-FY; 71275-TC; 74177-TC; 80053; 82550; 82962; 83036; 83690; 83880; 84443; 84484; 85025; 85610; 85730; 93005; 93010; 93306-TC; 99282-25; G0378; J1644; J7030